=== PATIENT | male | born 1955 | race Caucasian/White ===

== ENCOUNTER 2018-09-03 07:07 | Inpatient (IN) ==
[2018-09-03] MEDS ORDERED: ASPIRIN CHEW 324 MG ONE (07:21)
[2018-09-03] MEDS ORDERED: NITROGLYCERIN SL 0.4 MG/TAB TAB ONE (07:29)
[2018-09-03 07:33] LABS: Hematocrit (blood only) 49.2 % (42-52); Hemoglobin 16.5 g/dL (14.0-18.0); Mean Corpuscular Hgb Conc 33.5 g/dL (32-36); Mean Platelet Volume 9.4 fL (7.4-10.4); Platelet Count 192 K/uL (130-400); RDW Coefficient of Variation 12.8 % (11.5-14.5); RDW Standard Deviation 44.3 fL (36.4-46.3); Red Blood Count 5.18 M/uL (4.7-6.1); White Blood Count 6.71 K/uL (4.8-10.8)
[2018-09-03 07:40] LABS: iSTAT Hemoglobin 16.7 g/dl (14.0-18.0); iSTAT Ionized Calcium 1.19 mmol/l (1.12-1.32); iSTAT Potassium 4.5 mEq/L (3.3-5.0)
[2018-09-03 07:43] LABS: Partial Thromboplastin Time 26.3 Seconds (21.0-31.0); Prothrombin Time 10.2 Seconds (9.0-12.0)
[2018-09-03] MEDS ORDERED: NiCARDipine HCL INJ 2.5 MG/ML 10 ML AMP ONE (07:48)
[2018-09-03] MEDS ORDERED: NITROGLYCERIN/D5W 100MCG/ML 20ML SYR ONE (07:48)
[2018-09-03] MEDS ORDERED: MIDAZOLAM HCL 1 MG/ML 2ML VIAL ONE (07:48)
[2018-09-03] MEDS ORDERED: fentaNYL citrate 100 MCG/2 ML VIAL ONE (07:48)
[2018-09-03] MEDS ORDERED: HEPARIN (PORCINE) 1000 UNIT/ML 10 ML (CATH LAB USE ONLY) ONE ×2 (07:48→08:34)
[2018-09-03 07:52] LABS: Albumin Level 3.8 gm/dl (3.4-5.0); BUN Creatinine Ratio 13.5 (10-20); Calcium 9.3 mg/dl (8.5-10.1); Creatinine Clr Calc Pharmacy 83.6 ml/min; Est GFR (African American) 82.9; Est GFR (Non-African American) 71.6; Magnesium 2.5 mg/dl (1.8-2.4); Potassium 4.7 mmol/L (3.5-5.1)
--- NOTE | 2018-09-03 07:59 | XRay Report ---
XR chest 1V portable HISTORY: 63 years-old Male Chest pain acute atypical chest pain COMPARISON: Chest CT 09/14/2011, chest and rib radiographs 09/14/2011 TECHNIQUE: Portable AP view of the chest FINDINGS: Cardiac silhouette is mildly enlarged which has increased in size from comparison and may be accentua marcelo by technique. No pneumothorax, pleural effusion, focal airspace consolidation or overt pulmonary edema. Degenerative changes of the shoulders and spine. Bones appear grossly intact. IMPRESSION: No acute process. The above report was generated using voice recognition software. It may contain grammatical, syntax o r spelling errors. Electronically signed by: Jimmy Maria M.D. 09/03/2018 7:58 AM
[2018-09-03 08:04] LABS: ALC (manual) 3.56 K/uL (1.2-3.4); Basophils # (manual) 0.06 K/uL (0-0.2); Basophils % (manual) 0.9 %; Eosinophils # (manual) 0.11 K/uL (0-0.5); Eosinophils % (manual) 1.7 %; Lymphocytes # (manual) 1.81 K/uL (1.2-3.4); Monocytes % (manual) 10.4 %; Myelocytes # (manual) 0.06 K/uL (0-0); Myelocytes % (manual) 0.9 %; RBC Morphology Unremarkable; Reactive Lymphocytes # (manual) 1.75 K/uL
[2018-09-03 08:11] LABS: Albumin Globulin Ratio 1.1 (0.9-2); Bilirubin,Total 0.5 mg/dl (0.2-1); Creatine Kinase MB 2.3 ng/ml (0.5-3.6); Globulin 3.4 gm/dl (2.5-4.0); Total Protein 7.2 gm/dl (6.4-8.2); Troponin I 0.193 ng/ml (0-0.045)
--- NOTE | 2018-09-03 08:39 | Emergency Department Note ---
Entered by Darcy Gonzalez acting as a scribe for History of Present Illness General Chief complaint: Chest Pain Stated complaint: CHEST PAIN, SWEATING BADLY Time Seen by Provider: 09/03/18 07:28 Source: patient, family and other (Nurse) History of Present Illness Onset (ago): hour(s) 1 Location: chest Pain Consistency: + other (Sudden) Associated symptoms: + chest pain, + diaphoresis and + other (Positive back pain.) 63-year-old male presenting to the emergency department triage via private vehicle with chest pain. While in triage the patient became unresponsive and lost a pulse. HPI and review of systems are limited secondary to patient's clinical condition. Home Medications Home Medications Medication Instructions Recorded Confirmed Type glucos sul [id number] 2 cap PO QAM 09/03/18 09/03/18 History [Glucosamine Chondroitin] Allergies Allergy/AdvReac Type Severity Reaction Status Date / Time Penicillins Allergy Unknown . Verified 09/03/18 07:53 Past Med/Surg History Medical History No pertinent past medical history Surgical History History of repair of ACL Family History Other Cancer Social History Feels Safe at Home: Yes Smoking Status: Former smoker Review of Systems Unobtainable due to cognitive status Physical Exam Vital Signs Vital Signs - 24 hr 09/03/18 07:09 09/03/18 07:21 09/03/18 07:24 Temperature 36.5 C Temperature Source Oral Sepsis Recent Fever Within 48 Hours No Sepsis New/Unexplained Change in Mental Status No Sepsis Action Taken by Nursing No Action Required Pulse Rate 51 L 69 Pulse Rate [Apical] 104 H Pulse Rhythm [Apical] Regular Respiratory Rate 20 25 H 16 Respiratory Effort / Characteristics Respiratory Depth Blood Pressure 159/96 H Blood Pressure [Left Arm] 143/86 H Blood Pressure [Right Arm] Blood Pressure Mean 117 Blood Pressure Mean [Left Arm] 105 Blood Pressure Mean [Right Arm] Blood Pressure Position Sitting Blood Pressure Position [Left Arm] Lying Blood Pressure Position [Right Arm] Pulse Oximetry 93 100 100 Oxygen Delivery Method Room Air Non-rebreather Non-rebreather Oxygen Flow Rate 15 15 09/03/18 07:34 09/03/18 07:42 09/03/18 07:53 Temperature Temperature Source Sepsis Recent Fever Within 48 Hours Sepsis New/Unexplained Change in Mental Status Sepsis Action Taken by Nursing Pulse Rate 69 Pulse Rate [Apical] 87 71 Pulse Rhythm [Apical] Regular Regular Respiratory Rate 23 15 17 Respiratory Effort / Characteristics Non-Labored Respiratory Depth Normal Blood Pressure 139/97 Blood Pressure [Left Arm] 130/92 131/91 Blood Pressure [Right Arm] 136/98 Blood Pressure Mean Blood Pressure Mean [Left Arm] 104 104 Blood Pressure Mean [Right Arm] 110 Blood Pressure Position Blood Pressure Position [Left Arm] Lying Lying Blood Pressure Position [Right Arm] Lying Pulse Oximetry 100 99 96 Oxygen Delivery Method Non-rebreather Non-rebreather Non-rebreather Oxygen Flow Rate 15 15 15 Physical Exam GENERAL: Distressed. Pale. In cardiac arrest. HENT: Exam performed. - Head: Normocephalic and atraumatic. CV: No palpable pulse, chest compressions being done. PULM/CHEST: Patient being ventilated with ambu bag. Rhonchi bilaterally. ABD: The abdomen is soft. SKIN: Pale Course 0706: The patient was evaluated in room A1, from triage and a history and physical examination were performed. In triage the patient became unresponsive. He had no pulse on arrival in the resuscitation bay. Patient was immediately started with chest compressions. Patient was placed on the monitor and IV access was obtained. The patient was being bagged with an Ambu bag. 0713: The patient was found to be in V. fib on the monitor. 1 defibrillation of 200 J was given. After that the defibrilation the patient gained a pulse back. Amiodarone 300 mg IV push was ordered. 0718: EKG showed sinus rhythm with rate of 114. VT QRS and QTc intervals are within normal limits. ST elevation in leads V1 V2. ST depression in leads II, III, aVF. PVCs present. Patient's EKG is concerning for STEMI. Given his EKG findings and his successful ROSC heart alert was paged. 0722: EKG shows sinus rhythm with rate of 99. VT QRS and QTc intervals within normal limits. ST elevation in leads V1 V2. ST depression in leads II, III, aVF, V4 and V5. 0725: EKG shows sinus rhythm with rate 96. VT QRS and QTc intervals within normal limits. ST elevation in leads V1 V2. ST depression in leads II, III, aVF. 0730: Patient's was brought to bedside. The patients reports that the patient woke up this morning with a pain in his back that radiated to his shoulders. She states that the patient was having trouble lifting his arms and that this pain eventually radiated to his chest. The patients reports that while in triage the patient became diaphoretic and short of breath. She states that the patient complained of chest pain in triage and then stopped breathing. The patient is currently alert and oriented speaking with his . He currently reports his chest pain is 2 out of 10 over his left anterior chest. No radiation of the pain. He explains that he was on a bike ride about 1 week ago and experienced the same kind of chest pain as he experienced today but did not seek medical attention, as his chest pain at that time resolved on its own when he rested. The patient reports that he has no significant past medical history. He states that he doesnt see a PCP regularly. He notes that he has 4 to 5 glasses of bourbon per day. He adds that he takes Glucosamine daily. No recent cocaine usage. 0737: The patients POC troponin at this time is 0.17. Blood pressure is 130/92. Oxygen saturation is 100% on supplemental oxygen. Given the HPI reported by the that the patient initially had back pain that then radiated to his chest, there was thought about a possible aortic dissection. However, the patient was not hypertensive. He had palpable pulses in his BUE and BLE. BP in his RUE is 130/92 and LUE is 136/98, no significant difference. Given the patient's palpable pulses in bilateral all extremeties, no significant BP difference in his BUE, no significantly elevated BP, no history of cocaine abuse, EKG findings consistent with a STEMI, and the fact that the patient immediately had ROSC back after one defibrilation, it is thought that the patients symptoms were more likely due to a STEMI than aortic dissection. We will discuss with cardiology if they would like to conduct CTA to rule out dissection prior to taking the patient to the rn lab. 0741: I discussed the patients case with Dr. Cuello cold type artist. He will be at the patients bedside momentarily. I did discuss with him if he wanted me to get a CTA to rule out aortic dissection but he stated to take the patient directly to the manufacturing lab technician. He will evaluate the patient for further management. 0749: Dr. Cuello at bedside evaluating the patient. 0756: Dr. Cuello took the patient to the manufacturing lab technician at this time. Consultations Consultation #1: I discussed the patients case with Dr. Cuello cold type artist. He will be at the patients bedside momentarily. I did discuss with him if he wanted me to get a CTA but he stated to take the patient directly to the manufacturing lab technician. He will evaluate the patient for further management. Time: 07:41 Administered Medications Discontinued Medications Aspirin (Aspirin) Confirm Administered Dose 324 mg .ROUTE .[facility] ONE Stop: 09/03/18 07:22 Last Admin: 09/03/18 07:21 Dose: 324 mg Documented by: [id number] Nitroglycerin (Nitrostat) Confirm Administered Dose 1.2 mg .ROUTE .[facility] ONE Stop: 09/03/18 07:30 Last Admin: 09/03/18 07:30 Dose: 0.4 mg Documented by: [id number] Medical Decision Making Medical Records Attestation: I reviewed the patient's medical records. Home Medications Current Medication List: was personally reviewed by me Laboratory Data Attestation: I reviewed the patient's lab results. Result diagrams: 09/03/18 07:24 09/03/18 07:24 Lab Results 09/03/18 09/03/18 09/03/18 Range/Units 07:23 07:24 07:24 WBC 6.71 (4.8-10.8) K/uL RBC 5.18 (4.7-6.1) M/uL Hgb 16.5 (14.0-18.0) g/dL POC Hgb (14.0-18.0) g/dl Hct 49.2 (42-52) % POC Hct (42-52) % MCV 95.0 (80-100) fL MCH 31.9 (25-34) pg MCHC 33.5 (32-36) g/dL RDW Std Deviation 44.3 (36.4-46.3) fL RDW Coeff of Asaf 12.8 (11.5-14.5) % Plt Count 192 (130-400) K/uL MPV 9.4 (7.4-10.4) fL Neutrophils % (Manual) 33.0 % Lymphocytes % (Manual) 27.0 % Reactive Lymphs % (Man) 26.1 % Monocytes % (Manual) 10.4 % Eosinophils % (Manual) 1.7 % Basophils % (Manual) 0.9 % Myelocytes % (Man) 0.9 % Neutrophils # (Manual) 2.21 (1.4-6.5) K/uL Total Absolute Neuts 2.21 (1.4-6.5) K/uL Lymphocytes # (Manual) 1.81 (1.2-3.4) K/uL Reactive Lymphs # 1.75 K/uL Total Abs Lymphocytes 3.56 H (1.2-3.4) K/uL Monocytes # (Manual) 0.70 H (0.11-0.59) K/uL Eosinophils # (Manual) 0.11 (0-0.5) K/uL Basophils # (Manual) 0.06 (0-0.2) K/uL Myelocytes # (Manual) 0.06 H (0-0) K/uL RBC Morphology Unremarkable PT 10.2 (9.0-12.0) Seconds INR 1.0 (0.9-1.1) APTT 26.3 (21.0-31.0) Seconds PTT Ratio 1.0 POC Sodium (135-144) mEq/L Sodium (136-145) mmol/L POC Potassium (3.3-5.0) mEq/L Potassium (3.5-5.1) mmol/L POC Chloride (101-112) mEq/L Chloride (98-107) mmol/L Carbon Dioxide (21-32) mmol/L POC Total CO2 (24-31) mEq/l Anion Gap (3-11) POC Anion Gap (16-25) mmol/L POC BUN (7-18) mg/dl BUN (7-18) mg/dl Creatinine (0.6-1.4) mg/dl POC Creatinine (0.6-1.3) mg/dl Est Cr Clr Drug Dosing ml/min Est GFR ( Amer) Est GFR (Non-Af Amer) BUN/Creatinine Ratio (10-20) Glucose (70-99) mg/dl POC Glucose (other) (70-99) mg/dl Calcium (8.5-10.1) mg/dl POC Ioniz Calcium Elza (1.12-1.32) mmol/l Magnesium (1.8-2.4) mg/dl Total Bilirubin (0.2-1) mg/dl AST (15-37) U/L ALT (12-78) U/L Alkaline Phosphatase (45-117) U/L Total Creatine Kinase (39-308) U/L CK-MB (CK-2) (0.5-3.6) ng/ml CK/CKMB % Calc (0-3.0) POC Troponin I 0.17 H (0-0.045) ng/ml Troponin I (0-0.045) ng/ml Total Protein (6.4-8.2) gm/dl Albumin (3.4-5.0) gm/dl Globulin (2.5-4.0) gm/dl Albumin/Globulin Ratio (0.9-2) Lipase (73-393) U/L TSH (0.300-4.500) uIu/ml Specimen Hemolysis 09/03/18 09/03/18 Range/Units 07:24 07:25 WBC (4.8-10.8) K/uL RBC (4.7-6.1) M/uL Hgb (14.0-18.0) g/dL POC Hgb 16.7 (14.0-18.0) g/dl Hct (42-52) % POC Hct 49 (42-52) % MCV (80-100) fL MCH (25-34) pg MCHC (32-36) g/dL RDW Std Deviation (36.4-46.3) fL RDW Coeff of Asaf (11.5-14.5) % Plt Count (130-400) K/uL MPV (7.4-10.4) fL Neutrophils % (Manual) % Lymphocytes % (Manual) % Reactive Lymphs % (Man) % Monocytes % (Manual) % Eosinophils % (Manual) % Basophils % (Manual) % Myelocytes % (Man) % Neutrophils # (Manual) (1.4-6.5) K/uL Total Absolute Neuts (1.4-6.5) K/uL Lymphocytes # (Manual) (1.2-3.4) K/uL Reactive Lymphs # K/uL Total Abs Lymphocytes (1.2-3.4) K/uL Monocytes # (Manual) (0.11-0.59) K/uL Eosinophils # (Manual) (0-0.5) K/uL Basophils # (Manual) (0-0.2) K/uL Myelocytes # (Manual) (0-0) K/uL RBC Morphology PT (9.0-12.0) Seconds INR (0.9-1.1) APTT (21.0-31.0) Seconds PTT Ratio POC Sodium 141 (135-144) mEq/L Sodium 141 (136-145) mmol/L POC Potassium 4.5 (3.3-5.0) mEq/L Potassium 4.7 (3.5-5.1) mmol/L POC Chloride 105 (101-112) mEq/L Chloride 107 (98-107) mmol/L Carbon Dioxide 25 (21-32) mmol/L POC Total CO2 22 L (24-31) mEq/l Anion Gap 9.0 (3-11) POC Anion Gap 20.0 (16-25) mmol/L POC BUN 16 (7-18) mg/dl BUN 15 (7-18) mg/dl Creatinine 1.10 (0.6-1.4) mg/dl POC Creatinine 1.0 (0.6-1.3) mg/dl Est Cr Clr Drug Dosing 83.6 ml/min Est GFR ( Amer) 82.9 Est GFR (Non-Af Amer) 71.6 BUN/Creatinine Ratio 13.5 (10-20) Glucose 129 H (70-99) mg/dl POC Glucose (other) 139 H (70-99) mg/dl Calcium 9.3 (8.5-10.1) mg/dl POC Ioniz Calcium Elza 1.19 (1.12-1.32) mmol/l Magnesium 2.5 H (1.8-2.4) mg/dl Total Bilirubin 0.5 (0.2-1) mg/dl AST 43 H (15-37) U/L ALT 48 (12-78) U/L Alkaline Phosphatase 59 (45-117) U/L Total Creatine Kinase 82 (39-308) U/L CK-MB (CK-2) 2.3 (0.5-3.6) ng/ml CK/CKMB % Calc 2.8 (0-3.0) POC Troponin I (0-0.045) ng/ml Troponin I 0.193 H* (0-0.045) ng/ml Total Protein 7.2 (6.4-8.2) gm/dl Albumin 3.8 (3.4-5.0) gm/dl Globulin 3.4 (2.5-4.0) gm/dl Albumin/Globulin Ratio 1.1 (0.9-2) Lipase 95 (73-393) U/L TSH 1.470 (0.300-4.500) uIu/ml Specimen Hemolysis Imaging Data Radiologist's Impression: Radiology results as stated below per my review and the radiologist's interpretation: XR chest 1V portable HISTORY: 63 years-old Male Chest pain acute atypical chest pain COMPARISON: Chest CT 09/14/2011, chest and rib radiographs 09/14/2011 TECHNIQUE: Portable AP view of the chest FINDINGS: Cardiac silhouette is mildly enlarged which has increased in size from comparison and may be accentuated by technique. No pneumothorax, pleural effu tri, focal airspace consolidation or overt pulmonary edema. Degenerative changes of the shoulders and spine. Bones appear grossly intact. IMPRESSION: No acute process. The above report was generated using voice recognition software. It may contain grammatical, syntax or spelling errors. Electronically signed by: Jimmy Maria M.D. 09/03/2018 7:58 AM ECG Data Attestation: I personally reviewed and interpreted this ECG as follows: Indication: chest pain Rate (beats per minute): 114 Rhythm: sinus rhythm Findings: + other (VT, QRS and QTC intervals within normal limits.), + PVC, + ST depression (in leads 2, 3 and aVF.) and + ST elevation (in Leads V1 & V2.) Additional Comments: The primary EKG was done at 0718. 0722: Repeat EKG per my interpretation: Sinus rhythm at 99 bpm. VT, QRS and QTC intervals within normal limits. ST elevation in leads V1 and V2. ST depression in leads 2, 3, aVF and V4 through V6. PVCs present. 0725: Repeat EKG per my interpretation: Sinus rhythm at 96 bpm. VT, QRS and QTC intervals within normal limits. ST elevation in leads V1 and V2. ST depression in leads 2, 3 and aVF. Blood Pressure Blood Pressure Findings: Normal blood pressure Blood Pressure Disposition: further management by hospitalist JAYY Ramirez I was called into the resuscitation bay one by the nursing staff. In triage the patient became unresponsive. He had no pulse on arrival in the resuscitation bay. Patient was immediately started with chest compressions. Patient was placed on the monitor and IV access was obtained. The patient was being bagged with an Ambu bag. The patient was found to be in V. fib on the monitor. 1 defibrillation of 200 J was given. After that the defibrilation the patient gained a pulse back. Amiodarone 300 mg IV push was ordered. EKG showed sinus rhythm with rate of 114. VT QRS and QTc intervals are within normal limits. ST elevation in leads V1 V2. ST depression in leads II, III, aVF. PVCs present. Patient's EKG is concerning for STEMI. Given his EKG findings and his successful ROSC heart alert was paged. The patients reported that the patient woke up this morning with a pain in his back that radiated to his shoulders. She stated that the patient was having trouble lifting his arms and that this pain eventually radiated to his chest. The patients reported that while in triage the patient became diaphoretic and short of breath. She states that the patient complained of chest pain in triage and then stopped breathing. The patient reported chest pain over the left anterior chest while in the resuscitation bay. He stated he had similar pain last week while riding his bike, he said the pain resolved when he stopped riding his bike and rested. The patients POC troponin was 0.17. Given the HPI reported by the that the patient initially had back pain that then radiated to his chest, there was thought about a possible aortic dissection. However, the patient was not hypertensive. He had palpable pulses in his BUE and BLE. BP in his RUE is 130/92 and LUE is 136/98, no significant difference. Given the patient's palpable pulses in bilateral all extremeties, no significant BP difference in his BUE, no significantly elevated BP, no history of cocaine abuse, EKG findings consistent with STEMI, and the fact that the patient immediately had ROSC back after one defibrilation, it is thought that the patients symptoms were more likely due to a STEMI than aortic dissection. It is thought that if the patient was truly dissecting we would not successfully obtain ROSC with one defibrilation and his BP and pulse would be significantly higher than it was in the emergency department. We did discuss with cardiology if they would like to conduct CTA to rule out dissection prior to taking the patient to the rn lab. Cardiology evaluated the patient at bedside and decided to take the patient straight to the rn lab. Impression & Plan ST elevation (STEMI) myocardial infarction, Cardiac arrest with ventricular fibrillation Critical Care Time Critical Care Time: Yes Total Critical Care Time: 50 I have personally spent 50 minutes of critical care time in the direct management of this patient. This includes bedside care, interpretation of diagnostic studies, and testing, discussion with consultants, patient, and family members, and other required patient management activities. This 50 minutes is in excess of all separately billable procedures. Discharge Plan Visit Data *Final* Discharge Date/Time: 09/03/18 08:16 Chief Complaint: Chest Pain Stated Complaint: CHEST PAIN, SWEATING BADLY ED Provider: Humble Hines Discharge Problem: ST elevation (STEMI) myocardial infarction, Cardiac arrest with ventricular fibrillation Patient Disposition: Still a Patient Discharge Instructions Interventions: ED Discharge Assessment Last Done: 09/03/18 07:53 Discharge Problem: ST elevation (STEMI) myocardial infarction Qualifiers: Involved coronary artery: unspecified coronary artery Qualified Code(s): I21.3 - ST elevation (STEMI) myocardial infarction of unspecified site The scribe's documentation has been prepared under my direction and personally reviewed by me in its entirety. I confirm that the note above accurately reflects all work, treatment, procedures, and medical decision making performed by me.
[2018-09-03] MEDS ORDERED: TICAGRELOR 90 MG TAB PO ONE (09:05)
--- NOTE | 2018-09-03 09:24 | Cardiology Consultation ---
Date of Consultation September 03, 2018 Assessment & Plan (1) ST elevation (STEMI) myocardial infarction: Presentation consistent with anterior STEMI and recommend proceeding with emergent cardiac catheterization and likely primary PCI. No apparent contraindications to procedure. Discussed risks, benefits, alternatives of procedure with patient and they are willing to proceed. Further recommendations pending findings of coronary angiography. History of Present Illness Attending Physician: Pablo Cuello MD History of Present Illness 63-year-old man here with acute chest pain and ECG concerning for acute WI. Patient seen emergently in the ED after heart alert activated on arrival. No prior cardiac history. No real cardiac risk factors or other medical issues. Chest pain began approximately 1 hour prior to arrival while getting ready to go on a bike ride. Describes substernal chest pain radiating to his back pain. Reports one similar episode of brief pain 1 week ago while working in the garage. Since that time his exercise with no recurrent symptoms.. Patient arrested in triage after complaining of active chest pain. VF on monitor initially and received 1 shock chest compressions and loaded with amiodarone. Subsequent EKGs showed anterior, lateral ST elevations with inferior depressions. Post event patient awake, he dynamically stable endorsing 5 out of 10 chest pain. Allergies Allergy/AdvReac Type Severity Reaction Status Date / Time Penicillins Allergy Unknown . Verified 09/03/18 07:53 Home Medications Home Medications Medication Instructions Recorded Confirmed Type glucos sul [id number] 2 cap PO QAM 09/03/18 09/03/18 History [Glucosamine Chondroitin] Patient History Medical History No pertinent past medical history Surgical History History of repair of ACL Family History Other Cancer Social History Feels Safe at Home: Yes Smoking Status: Former smoker Review of Systems Review of Systems: Not completed in the setting of emergent situation Physical Exam Physical Exam: General: Uncomfortable no distress HEENT: Sclerae anicteric, mucous membranes moist Lungs: Clear to auscultation bilaterally, no rhonchi or wheezes Cardiac: Regular rate and rhythm, no murmurs. No JVD. Abdomen: Soft, nontender, nondistended, positive bowel sounds. Extremities: Warm, well perfused, no edema. 2+ radial pulses and distal lower extremity pulses Skin: No rashes or lesions. Neuro: Nonfocal Psych: Alert orient x3, normal affect and mood Results & Data Vital Signs (Past 12 Hours) Vital Signs Temp Pulse Pulse Resp BP BP BP 09/03/18 07:53 69 17 139/97 09/03/18 07:42 71 15 131/91 09/03/18 07:34 87 23 130/92 136/98 09/03/18 07:24 69 16 09/03/18 07:21 104 H 25 H 143/86 H 09/03/18 07:09 36.5 C 51 L 20 159/96 H Pulse Ox 09/03/18 07:53 96 09/03/18 07:42 99 09/03/18 07:34 100 09/03/18 07:24 100 09/03/18 07:21 100 09/03/18 07:09 93 (1) ST elevation (STEMI) myocardial infarction Involved coronary artery: unspecified coronary artery Qualified Code(s): I21.3 - ST elevation (STEMI) myocardial infarction of unspecified site
--- NOTE | 2018-09-03 09:25 | Post Anesthesia Assessment ---
Date of Service September 03, 2018 Post Sedation Assessment Vital Signs Temp Pulse Pulse Resp BP BP BP 09/03/18 07:53 69 17 139/97 09/03/18 07:42 71 15 131/91 09/03/18 07:34 87 23 130/92 136/98 09/03/18 07:24 69 16 09/03/18 07:21 104 H 25 H 143/86 H 09/03/18 07:09 36.5 C 51 L 20 159/96 H Pulse Ox 09/03/18 07:53 96 09/03/18 07:42 99 09/03/18 07:34 100 09/03/18 07:24 100 09/03/18 07:21 100 09/03/18 07:09 93 Recovery Score Activity: Moves 4 extremities Respiration: Deep Breath/Cough Circulation: +/-20% PreAnes Value Consciousness: Fully Awake Oxygen Saturation: O2 needed for >90% Discharge Sedation Level of Care: Fast Track Phase II Post Sedation Plan On clinical assessment, the patient appears to have tolerated the sedation without complications. Patient is recovering as anticipated. Patient will continue to be monitored by nursing and may be discharged when sedation discharge criteria are met per below protocol. Upon Completions of procedure and additional 15 minutes continue every 5 minute vital signs and the P.A.R. score; then discharge to a Phase I or Fast Track to Phase II per the following guidelines: * Discharge Patient to appropriate Phase II area if PAR is 8 or greater or return to pre- procedure baseline. The post - procedure orders will be as directed. * If PAR score is less than 8 or not return to pre-procedure baseline then patient will follow Phase I monitoring till PAR is reached for Phase II. The Phase I may be done in procedure room or may call to secure a Phase I area. * If naloxone or flumazenil are used for reversal, hold in Phase I for continued monitoring from when last reversal dose was given for a minimum of 60 minutes or longer pending the nurse and/or physician discretion of patient condition before discharge to Phase II. Please call the Sedation Physician to re-evaluate and complete post-note for discharge to Phase II area. Do NOT discharge from procedure sedation or Phase 1 until post- sedation evaluation note is complete by procedure /sedation MD Sedation Discharge Instructions to be given to the patient at discharge to home.
--- NOTE | 2018-09-03 09:25 | Pre Anesthesia Assessment ---
Date of Service September 03, 2018 Pre Sedation Assessment Vital Signs Temp Pulse Pulse Resp BP BP BP 09/03/18 07:53 69 17 139/97 09/03/18 07:42 71 15 131/91 09/03/18 07:34 87 23 130/92 136/98 09/03/18 07:24 69 16 09/03/18 07:21 104 H 25 H 143/86 H 09/03/18 07:09 36.5 C 51 L 20 159/96 H Pulse Ox 09/03/18 07:53 96 09/03/18 07:42 99 09/03/18 07:34 100 09/03/18 07:24 100 09/03/18 07:21 100 09/03/18 07:09 93 Cardiovascular RRR, no murmur, no edema Respiratory normal respiratory effort, lungs clear to auscultation Pre-Sedation Airway Assessment Smoking Status: Former smoker Hx Sleep Apnea: No Hx Difficult Intubation: No Short, Thick Neck: No Thyromental Distance: > or= 3.5 Finger Breadths Oral Cavity: + WNL Mallampati Class: III ASA: ASA4 Procedure Planning Contraindications for Sedation: none Current Medications Reviewed: Yes Notes The planned sedation has been discussed with the patient. Informed Consent was obtained. I have identified the patient, determined the appropriateness of sedation and have assessed the patient immediately prior to the procedure. All medicine(s) and interventions are by my order.
[2018-09-03] MEDS ORDERED: ONDANSETRON INJ 2 MG/ML 2 ML VIAL IV PRN (09:37)
--- NOTE | 2018-09-03 09:37 | Cardiac Catheterization ---
Cardiac Cath Procedure Full Procedure Date September 03, 2018 Pre-Procedure Diagnosis Pre-Procedure Diagnosis: STEMI AUC Score AUC Score: 9 Post-Procedure Diagnosis Post-Procedure Diagnosis: Severe CAD, Successful PCI and Elevated Intracardiac Pressures Procedure(s) Performed Procedure(s) Performed: Coronary Angiography, Left Heart Cath and Drug Eluting Stent Support Specialist Pablo Cuello MD Assisted Sales Representative(s) Melanie Estimated Blood Loss Estimated Blood Loss: None Medication(s) Medication(s): Fentanyl, Heparin, Lidocaine 1%, Nicardipine, Nitroglycerin and Versed Medication(s): Ticagrelor Summary of Findings Indication: STEMI/Heart Alert Access: 6 Fr right radial artery Catheters: EBU 3.5 guide, diagnostic JR4 Findings: LM -large caliber vessel, no significant disease LAD -proximal 100% acute occlusion Circumflex -moderate caliber vessel gives off to OM's without significant disease RCA -large caliber vessel, dominant, 20-30% stenosis in distal RCA takeoff of PDA LVEDP -20 -- PCI -- Antithrombotic therapy: Heparin, ticagrelor Procedure: Left main cannulated with EBU 3.5 guide Plant Packer 50 wire passed across lesion into distal vessel Proximal LAD lesion predilated with 2.5 compliant balloon When flow reestablished noted to have moderate caliber diagonal with takeoff at area of occlusion. Multiple attempts were made to wire into diagonal but unsuccessful. Dilated LAD lesion stented with 3.0 x 22 Ceiba drug-eluting stent Stent post-dilated with 3.5 and 4.0 proximally noncompliant balloons Additional attempts made to rewire into diagonal but unsuccessful. At completion of procedure no flow in second diagonal. IC vasodilators administered for spasm Post procedure DENITA 3 flow, stent well expanded with minimal residual stenosis and no apparent cardiac complications. Arterial Closure: TR band Summary: 1. Precath lab cardiac arrest 2. Anterior STEMI/Occluded proximal LAD 3. Minimal non-culprit coronary artery disease 4. Mildly elevated intracardiac filling pressure 5. Successful PCI of proximal LAD with single drug-eluting stent (3.0 x 22 mm Ceiba; postdilated with 3.5 and 4 oh NC balloons). - moderate caliber 1st diagonal occluded at completion of procedure Recommendations: Admit to ICU for continued monitoring Loaded with Ticagrelor 180mg Continue dual-antiplatelet therapy for at least 1 year. 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 Cardiac Status Clinical evaluation leading to the procedure CAD Presenation: STEMI Anginal Classification: CCS IV Heart Failure: No Cardiogenic Shock within 24 Hours: No Cardiac Arrest within 24 Hours: Yes Imaging Studies Past 6 Months: No Stress Studies Past 6 Months: No Diagnostic Physicians Name: Pablo Cuello MD Status: Emergency Closure Device Percutaneous Entry Location: Radial Closure Device: Radial Band Recommendations: PCI without planned CABG PCI Indication: Immediate PCI for STEMI Lesion Segment Name: proximal LAD Culprit Artery: Yes Stenosis Prior to Rx (%): 100 Chronic Total Occlusion: No IVUS: No Pre-Procedure DENITA Flow: 0 Previously Treated Lesion: No Lesion Complexity: High/C Lesion Length (mm): 20 Thrombus Present: Yes Bifurcation Lesion: Yes Guidewire Across Lesion: Stenosis Post-Procedure (%): 0 Post-Procedure DENIAT Flow: 3 Devices(s) Deployed: Yes Yes Intraprocedure Events Significant Disection: No Perforation: No
--- NOTE | 2018-09-03 09:41 | Critical Care Consultation ---
Date of Consultation September 03, 2018 Assessment & Plan (1) ST elevation (STEMI) myocardial infarction: Neuro- awake alert. pain control CV- HD stable s/p STEMI with LAD stent. cardiac arrest with rosc after defib x1 and amiodarone. aspirin, ticagrelor, atorvastatin. metoprolol, lisinopril. check echo Pulmonary- sat well on RA ID- no signs infection Renal- cr ok GI- diet as tolerated Heme- SCD proph Endocrine- keep blood sugars <!80 Dispo- monitor in ICU post stemi and cardiac arrest (2) Cardiac arrest with ventricular fibrillation: History of Present Illness Attending Physician: Pablo Cuello MD History of Present Illness 63 y/o make without significant PMH presenting with chest pain that started about an hour prior to arrival. when in triage he became unresponsive and was in v fib. he was shocked x1 and given amiodarone with ROSC. He was found to be having and STEMI and was taken to the medical laboratory scientist where he had stent of the LAD. He says he has chest pain and neck pain as well as diaphoresis and nauea. He says that last week he has simlar pain when working in garage but it went away on its own. currently he has pain in his chest but it feels different than prior and is worse with breathing. Allergies Allergy/AdvReac Type Severity Reaction Status Date / Time Penicillins Allergy Unknown . Verified 09/03/18 07:53 Home Medications Home Medications Medication Instructions Recorded Confirmed Type glucos sul [id number] 2 cap PO QAM 09/03/18 09/03/18 History [Glucosamine Chondroitin] Patient History Medical History No pertinent past medical history Surgical History History of repair of ACL Family History Grandmother Stroke Other Cancer Social History Feels Safe at Home: Yes Smoking Status: Former smoker Review of Systems Review of Systems: Constitutional: no fevers no chills no weight loss Eyes: no blurry or double vision. complains of briefly seeing floaters in L eye but now resolved EENT: no sore throat, no congestion Respiratory: no cough + shortness of breath Cardiovascular: + chest pain no palpitations GI: no abdominal pain, + nausea, no vomiting, no diarrhea, no constipation Gu: no dysuria, no frequency MSK: +shoulder pain, no muscle aches Skin: no rash Neuro: no headache, no dizziness, no focal weakness Endocrine: no heat or cold intolerance heme: no easy bruising, no lymphadenopathy Psych: no depression, no anxiety Physical Exam Physical Exam: Constitutional: Comfortable NAD HEENT: normocephalic atraumatic. MMM. no cervical lymphadenopathy CV: RRR nl s1,s2 no murmurs rubs or gallops Lungs: clear to auscultation bilaterally. no accessory muscle use Abd: soft nontender nondistended. normal bowel sounds Ext: no edema. no cyanosis, no clubbing Skin: warm dry Neuro: alert and oriented. moving all extremities Psych: normal mood and affect Results & Data Vital Signs (Past 12 Hours) Vital Signs Temp Pulse Pulse Resp BP BP BP 09/03/18 07:53 69 17 139/97 09/03/18 07:42 71 15 131/91 09/03/18 07:34 87 23 130/92 136/98 09/03/18 07:24 69 16 09/03/18 07:21 104 H 25 H 143/86 H 09/03/18 07:09 36.5 C 51 L 20 159/96 H Pulse Ox 09/03/18 07:53 96 09/03/18 07:42 99 09/03/18 07:34 100 09/03/18 07:24 100 09/03/18 07:21 100 09/03/18 07:09 93 Laboratory Results Laboratory Results - last 24 hr 09/03/18 09/03/18 09/03/18 07:23 07:24 07:24 WBC 6.71 RBC 5.18 Hgb 16.5 POC Hgb Hct 49.2 POC Hct MCV 95.0 MCH 31.9 MCHC 33.5 RDW Std Deviation 44.3 RDW Coeff of Asaf 12.8 Plt Count 192 MPV 9.4 Neutrophils % (Manual) 33.0 Lymphocytes % (Manual) 27.0 Reactive Lymphs % (Man) 26.1 Monocytes % (Manual) 10.4 Eosinophils % (Manual) 1.7 Basophils % (Manual) 0.9 Myelocytes % (Man) 0.9 Neutrophils # (Manual) 2.21 Total Absolute Neuts 2.21 Lymphocytes # (Manual) 1.81 Reactive Lymphs # 1.75 Total Abs Lymphocytes 3.56 H Monocytes # (Manual) 0.70 H Eosinophils # (Manual) 0.11 Basophils # (Manual) 0.06 Myelocytes # (Manual) 0.06 H RBC Morphology Unremarkable PT 10.2 INR 1.0 APTT 26.3 PTT Ratio 1.0 Activ Coag Time Kaolin POC Sodium Sodium POC Potassium Potassium POC Chloride Chloride Carbon Dioxide POC Total CO2 Anion Gap POC Anion Gap POC BUN BUN Creatinine POC Creatinine Est Cr Clr Drug Dosing Est GFR ( Amer) Est GFR (Non-Af Amer) BUN/Creatinine Ratio Glucose POC Glucose (other) Calcium POC Ioniz Calcium Elza Magnesium Total Bilirubin AST ALT Alkaline Phosphatase Total Creatine Kinase CK-MB (CK-2) CK/CKMB % Calc POC Troponin I 0.17 H Troponin I Total Protein Albumin Globulin Albumin/Globulin Ratio Lipase TSH Specimen Hemolysis 09/03/18 09/03/18 09/03/18 07:24 07:25 08:30 WBC RBC Hgb POC Hgb 16.7 Hct POC Hct 49 MCV MCH MCHC RDW Std Deviation RDW Coeff of Asaf Plt Count MPV Neutrophils % (Manual) Lymphocytes % (Manual) Reactive Lymphs % (Man) Monocytes % (Manual) Eosinophils % (Manual) Basophils % (Manual) Myelocytes % (Man) Neutrophils # (Manual) Total Absolute Neuts Lymphocytes # (Manual) Reactive Lymphs # Total Abs Lymphocytes Monocytes # (Manual) Eosinophils # (Manual) Basophils # (Manual) Myelocytes # (Manual) RBC Morphology PT INR APTT PTT Ratio Activ Coag Time Kaolin Pending POC Sodium 141 Sodium 141 POC Potassium 4.5 Potassium 4.7 POC Chloride 105 Chloride 107 Carbon Dioxide 25 POC Total CO2 22 L Anion Gap 9.0 POC Anion Gap 20.0 POC BUN 16 BUN 15 Creatinine 1.10 POC Creatinine 1.0 Est Cr Clr Drug Dosing 83.6 Est GFR ( Amer) 82.9 Est GFR (Non-Af Amer) 71.6 BUN/Creatinine Ratio 13.5 Glucose 129 H POC Glucose (other) 139 H Calcium 9.3 POC Ioniz Calcium Elza 1.19 Magnesium 2.5 H Total Bilirubin 0.5 AST 43 H ALT 48 Alkaline Phosphatase 59 Total Creatine Kinase 82 CK-MB (CK-2) 2.3 CK/CKMB % Calc 2.8 POC Troponin I Troponin I 0.193 H* Total Protein 7.2 Albumin 3.8 Globulin 3.4 Albumin/Globulin Ratio 1.1 Lipase 95 TSH 1.470 Specimen Hemolysis 09/03/18 08:53 WBC RBC Hgb POC Hgb Hct POC Hct MCV MCH MCHC RDW Std Deviation RDW Coeff of Asaf Plt Count MPV Neutrophils % (Manual) Lymphocytes % (Manual) Reactive Lymphs % (Man) Monocytes % (Manual) Eosinophils % (Manual) Basophils % (Manual) Myelocytes % (Man) Neutrophils # (Manual) Total Absolute Neuts Lymphocytes # (Manual) Reactive Lymphs # Total Abs Lymphocytes Monocytes # (Manual) Eosinophils # (Manual) Basophils # (Manual) Myelocytes # (Manual) RBC Morphology PT INR APTT PTT Ratio Activ Coag Time Kaolin Pending POC Sodium Sodium POC Potassium Potassium POC Chloride Chloride Carbon Dioxide POC Total CO2 Anion Gap POC Anion Gap POC BUN BUN Creatinine POC Creatinine Est Cr Clr Drug Dosing Est GFR ( Amer) Est GFR (Non-Af Amer) BUN/Creatinine Ratio Glucose POC Glucose (other) Calcium POC Ioniz Calcium Elza Magnesium Total Bilirubin AST ALT Alkaline Phosphatase Total Creatine Kinase CK-MB (CK-2) CK/CKMB % Calc POC Troponin I Troponin I Total Protein Albumin Globulin Albumin/Globulin Ratio Lipase TSH Specimen Hemolysis Diagnostic Findings XR chest 1V portable HISTORY: 63 years-old Male Chest pain acute atypical chest pain COMPARISON: Chest CT 09/14/2011, chest and rib radiographs 09/14/2011 TECHNIQUE: Portable AP view of the chest FINDINGS: Cardiac silhouette is mildly enlarged which has increased in size from comparison and may be accentuated by technique. No pneumothorax, pleural effusion, focal airspace consolidation or overt pulmonary edema. Degenerative changes of the shoulders and spine. Bones appear grossly intact. IMPRESSION: No acute process. The above report was generated using voice recognition software. It may contain grammatical, syntax or spelling errors. Electronically signed by: Jimmy Maria M.D. 09/03/2018 7:58 AM (1) ST elevation (STEMI) myocardial infarction Involved coronary artery: unspecified coronary artery Qualified Code(s): I21.3 - ST elevation (STEMI) myocardial infarction of unspecified site
[2018-09-03] MEDS ORDERED: ICU PROTOCOL FOR HYPERGLYCEMIA PRN (09:43)
[2018-09-03] MEDS ORDERED: SODIUM CHLORIDE 0.9% 1000ML 1,000 ML IV SCH (10:00)
[2018-09-03] MEDS ORDERED: SODIUM CHLORIDE 0.9% 10ML FLUSH IV ONE (11:10)
[2018-09-03] MEDS ORDERED: AMIODARONE HCL INJ 50 MG/ML 3 ML VIAL IV ONE (11:10)
[2018-09-03] MEDS ORDERED: DEXTROSE 5% 100 ML BAG IV ONE (11:10)
[2018-09-03] MEDS: ATORVASTATIN 40 MG TAB PO SCH (11:13)
[2018-09-03] MEDS: LISINOPRIL 5 MG TAB PO SCH (11:13)
[2018-09-03] MEDS: METOPROLOL TARTRATE 25 MG TAB PO SCH ×3 (11:39→20:02)
--- NOTE | 2018-09-03 14:32 | History & Physical Report ---
Date of Service September 03, 2018 Assessment & Plan (1) ST elevation (STEMI) myocardial infarction: Anterior wall STEMI 2nd to 100% occluded LAD. s/p emergent heart cath by Dr Cuello with successful VALARIE to the LAD. Now resting comfortably in the ICU post-cath. Cont asa, brilinta, high-intensity statin, low-dose BB, low-dose MARIANNA. Serial troponins, telemetry, echo. Risk factor modification - check lipids in AM, check hemoglobin a1c in am. Counseled him on natural history of CAD and told him that prior tobacco use, genetics, etc all play a role in its development. Appreciate cardiology assistance and critical care consultation. Gentle fluids to promote contrast excretion. Present on Admission?: Yes (2) Cardiac arrest with ventricular fibrillation: V.fib arrest 2nd to 100% occluded LAD. s/p successful confucianism of spontaneous circulation with chest compressions/defibrillation per ACLS protocol. s/p emergent cath with VALARIE to LAD. Monitor on telemetry. K/mag levels noted to be normal. Check echo. Present on Admission?: Yes (3) Hyperlipidemia: Check lipid profile in am. TSH noted to be normal. High-intensity statin. (4) Alcohol abuse: 5 shots bourbon daily. No prior h/o withdrawal. Thiamine/folic acid/MVI. Counseled to moderate his etoh intake to 1-2 each day but preferably much less. Watch for any withdrawal symptoms. (5) Visual disturbance: left eye. could he have had a stroke causing visual disturbance? concern would be for embolic event in setting of cardiac arrest. monitor; low threshold for imaging (CT head, MRI brain, as well as additional work-up). (6) DVT prophylaxis: SCDs for now. updated at bedside. plan of care d/w Dr Cuello. History of Present Illness Chief Complaint: chest pain Primary Care Provider: NO PCP 63yo male with history of remote tobacco dependence (quit age 40yo) and hyp erlipidemia who presented to the [facility] ER this morning after experiencing b/l upper chest discomfort. This was associated with extreme diaphoresis and nausea. He had mild radiation of pain to his upper back. No left arm pain. Minimal radiation to the right lower jaw region. He was preparing to go on a mountain bike ride this AM when the symptoms occurred. Because of the severity of the symptoms he presented to [facility]. Apparently while in triage he became unresponsive. He was brought into the resuscitation bay and his initial rhythm was v.fib. He was promptly given 100% O2 via BVM, chest compressions were started, and he was defibrillated with 200J x 1 with conversion of v.fib to sinus tachycardia. He never required intubation. By report he received about 2 minutes of chest compressions. He was given a bolus of 300mg of IV amiodarone about this time. Initial EKG following successful defibrillation showed STEMI with ST segment elevation in I/AVL and anterolateral leads. Code heart alert was called, and Dr Pablo Cuello took him emergently to the pie bak[facility] laborer where a proximal LAD lesion of 100% was found. He underwent successful VALARIE to the LAD. Other major vessels were either normal or had minimal disease. I saw the patient in the ICU post-cath. He was complaining of chest discomfort but it was a different pain that what he had this AM (it was sternal in location rather than high up in the chest/shoulders). He had worsening chest discomfort with taking deep breaths. He also noted that after coming out of the pie bakery laborer he was seeing a "diagonal line" in his left eye. This has been coming & going since the heart cath. He denies any right eye visual disturbance. Denies focal weakness in either arm or leg. He had a similar episode of chest pain about 1 week ago while riding his mountain bike. His symptoms self-resolved after that incident. 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 Admits to heavy alcohol use daily - 5 shots of bourbon every day. Denies h/o withdrawal symptoms. Allergies Allergy/AdvReac Type Severity Reaction Status Date / Time Penicillins Allergy Unknown . Verified 09/03/18 07:53 Home Medications Home Medications Medication Instructions Recorded Confirmed Type glucos sul [id number] 2 cap PO QAM 09/03/18 09/03/18 History [Glucosamine Chondroitin] Past Med/Surg History Medical History Former heavy tobacco smoker Hyperlipidemia Surgical History History of repair of ACL H/O arthroscopy of knee Family History Mother , in her 70s Sepsis Father , age 58 Laryngeal cancer Alcoholism Uncle Myocardial infarction Grandfather (Maternal) Stroke Grandfather (Paternal) Stroke Other Cancer Social History Beliefs That Will Affect Care: None marital status: marital status details: 1 step-daughter Current Living Situation: Spouse Current Living Situation Comment: lives in [place] current occupational status: employed 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; 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 Feels Safe at Home: Yes Smoking Status: Former smoker Tobacco Type: cigarettes Age Started Using Tobacco: 23 Age Quit Using Tobacco: 39 packs per day: 1 Years Smoked: 18 Hx Alcohol Use: Yes Alcohol type: hard liquor Alcohol type Comment: 5 shots bourbon/day Alcohol Intake Frequency: Daily Hx Substance Use: No Physical Activity Frequency: 3-4 Times per Week Review of Systems Constitutional: no fever, no chills, no fatigue, no anorexia and no weight loss Eyes: as per Subjective / HPI, + spots in vision and + worsening vision; no loss of peripheral vision, no photophobia and not seeing flashes Ear, Nose, Mouth, Throat: no nasal congestion and no sore throat Respiratory: + dyspnea (today only); no cough and no dyspnea on exertion Cardiovascular: as per Subjective / HPI and + chest pain; no orthopnea, no paroxysmal nocturnal dyspnea and no edema Gastrointestinal: no abdominal pain, no vomiting and no diarrhea/loose stools Genitourinary: no dysuria Musculoskeletal: + joint pain (knees) Integumentary: no rash Neurologic: no localized weakness, no paralysis, no loss of sensation and no headache(s) Psychiatric: + anxiety Endocrine: no h/o diabetes Hematologic / Lymphatic: no easy bleeding Physical Exam Constitutional: well developed, well nourished and average body habitus; no acute distress and no altered mental status Eyes: PERRL visual bailon full by direct confrontation ENMT: external ear and nose normal, oropharynx normal Neck: trachea midline, no thyromegaly Respiratory: normal respiratory effort, lungs clear to auscultation Cardiovascular: Rate/Rhythm: regular rate and regular rhythm Heart Sounds: normal S1 and normal S2; no murmur Vessels: posterior tibial pulses present and dorsalis pedis pulses present; no JVD Extremities: no edema Chest (Breasts): Additional Comments: mildly tender to palpation over sternal region Gastrointestinal (Abdomen): normal bowel sounds, soft, nontender, no hepatosplenomegaly Musculoskeletal: no cyanosis or clubbing, extremities motor strength 5/5 scars present over both knees Skin: no rashes, warm and dry Neurologic: PERRL, EOMI, accommodation nl, no face palsy, no dysarthria deep tendon reflexes 2+ bilaterally; no focal motor deficits Psychiatric: A+Ox3, euthymic affect Lymphatic: no cervical lymphadenopathy Results & Data Vital Signs (Past 12 Hours) Vital Signs Temp Pulse Pulse Resp BP BP BP 09/03/18 13:00 23 134/87 09/03/18 12:15 60 17 136/88 09/03/18 12:00 36.4 C L 56 L 21 139/86 09/03/18 11:30 57 L 17 114/100 09/03/18 11:15 56 L 18 145/92 H 09/03/18 11:00 54 L 16 140/82 09/03/18 10:45 55 L 16 149/82 H 09/03/18 10:30 56 L 18 138/86 09/03/18 10:15 54 L 12 122/81 09/03/18 10:00 57 L 20 138/123 H 09/03/18 09:49 59 L 21 129/88 09/03/18 09:44 36.4 C L 58 L 20 125/93 09/03/18 09:35 36.8 C 60 125/93 09/03/18 07:53 69 17 139/97 09/03/18 07:42 71 15 131/91 09/03/18 07:34 87 23 130/92 136/98 09/03/18 07:24 69 16 09/03/18 07:21 104 H 25 H 143/86 H 09/03/18 07:09 36.5 C 51 L 20 159/96 H Pulse Ox 09/03/18 13:00 93 09/03/18 12:15 96 09/03/18 12:00 96 09/03/18 11:30 95 09/03/18 11:15 97 09/03/18 11:00 94 09/03/18 10:45 96 09/03/18 10:30 97 09/03/18 10:15 99 09/03/18 10:00 94 09/03/18 09:49 90 09/03/18 09:44 94 09/03/18 09:35 92 09/03/18 07:53 96 09/03/18 07:42 99 09/03/18 07:34 100 09/03/18 07:24 100 09/03/18 07:21 100 09/03/18 07:09 93 Laboratory Results Laboratory Results - last 24 hr 09/03/18 09/03/18 09/03/18 07:23 07:24 07:24 WBC 6.71 RBC 5.18 Hgb 16.5 POC Hgb Hct 49.2 POC Hct MCV 95.0 MCH 31.9 MCHC 33.5 RDW Std Deviation 44.3 RDW Coeff of Asaf 12.8 Plt Count 192 MPV 9.4 Neutrophils % (Manual) 33.0 Lymphocytes % (Manual) 27.0 Reactive Lymphs % (Man) 26.1 Monocytes % (Manual) 10.4 Eosinophils % (Manual) 1.7 Basophils % (Manual) 0.9 Myelocytes % (Man) 0.9 Neutrophils # (Manual) 2.21 Total Absolute Neuts 2.21 Lymphocytes # (Manual) 1.81 Reactive Lymphs # 1.75 Total Abs Lymphocytes 3.56 H Monocytes # (Manual) 0.70 H Eosinophils # (Manual) 0.11 Basophils # (Manual) 0.06 Myelocytes # (Manual) 0.06 H RBC Morphology Unremarkable PT 10.2 INR 1.0 APTT 26.3 PTT Ratio 1.0 Activ Coag Time Kaolin POC Sodium Sodium POC Potassium Potassium POC Chloride Chloride Carbon Dioxide POC Total CO2 Anion Gap POC Anion Gap POC BUN BUN Creatinine POC Creatinine Est Cr Clr Drug Dosing Est GFR ( Amer) Est GFR (Non-Af Amer) BUN/Creatinine Ratio Glucose POC Glucose POC Glucose (other) Calcium POC Ioniz Calcium Elza Magnesium Total Bilirubin AST ALT Alkaline Phosphatase Total Creatine Kinase CK-MB (CK-2) CK/CKMB % Calc POC Troponin I 0.17 H Troponin I Total Protein Albumin Globulin Albumin/Globulin Ratio Lipase TSH Specimen Hemolysis Nasal Screen MRSA (PCR) Hepatitis C Ab Screen 09/03/18 09/03/18 09/03/18 07:24 07:25 08:30 WBC RBC Hgb POC Hgb 16.7 Hct POC Hct 49 MCV MCH MCHC RDW Std Deviation RDW Coeff of Asaf Plt Count MPV Neutrophils % (Manual) Lymphocytes % (Manual) Reactive Lymphs % (Man) Monocytes % (Manual) Eosinophils % (Manual) Basophils % (Manual) Myelocytes % (Man) Neutrophils # (Manual) Total Absolute Neuts Lymphocytes # (Manual) Reactive Lymphs # Total Abs Lymphocytes Monocytes # (Manual) Eosinophils # (Manual) Basophils # (Manual) Myelocytes # (Manual) RBC Morphology PT INR APTT PTT Ratio Activ Coag Time Kaolin 197 H POC Sodium 141 Sodium 141 POC Potassium 4.5 Potassium 4.7 POC Chloride 105 Chloride 107 Carbon Dioxide 25 POC Total CO2 22 L Anion Gap 9.0 POC Anion Gap 20.0 POC BUN 16 BUN 15 Creatinine 1.10 POC Creatinine 1.0 Est Cr Clr Drug Dosing 83.6 Est GFR ( Amer) 82.9 Est GFR (Non-Af Amer) 71.6 BUN/Creatinine Ratio 13.5 Glucose 129 H POC Glucose POC Glucose (other) 139 H Calcium 9.3 POC Ioniz Calcium Elza 1.19 Magnesium 2.5 H Total Bilirubin 0.5 AST 43 H ALT 48 Alkaline Phosphatase 59 Total Creatine Kinase 82 CK-MB (CK-2) 2.3 CK/CKMB % Calc 2.8 POC Troponin I Troponin I 0.193 H* Total Protein 7.2 Albumin 3.8 Globulin 3.4 Albumin/Globulin Ratio 1.1 Lipase 95 TSH 1.470 Specimen Hemolysis Nasal Screen MRSA (PCR) Hepatitis C Ab Screen 09/03/18 09/03/18 09/03/18 08:53 10:15 11:15 WBC RBC Hgb POC Hgb Hct POC Hct MCV MCH MCHC RDW Std Deviation RDW Coeff of Asaf Plt Count MPV Neutrophils % (Manual) Lymphocytes % (Manual) Reactive Lymphs % (Man) Monocytes % (Manual) Eosinophils % (Manual) Basophils % (Manual) Myelocytes % (Man) Neutrophils # (Manual) Total Absolute Neuts Lymphocytes # (Manual) Reactive Lymphs # Total Abs Lymphocytes Monocytes # (Manual) Eosinophils # (Manual) Basophils # (Manual) Myelocytes # (Manual) RBC Morphology PT INR APTT PTT Ratio Activ Coag Time Kaolin 263 H POC Sodium Sodium POC Potassium Potassium POC Chloride Chloride Carbon Dioxide POC Total CO2 Anion Gap POC Anion Gap POC BUN BUN Creatinine POC Creatinine Est Cr Clr Drug Dosing Est GFR ( Amer) Est GFR (Non-Af Amer) BUN/Creatinine Ratio Glucose POC Glucose 106 H POC Glucose (other) Calcium POC Ioniz Calcium Elza Magnesium Total Bilirubin AST ALT Alkaline Phosphatase Total Creatine Kinase CK-MB (CK-2) CK/CKMB % Calc POC Troponin I Troponin I Total Protein Albumin Globulin Albumin/Globulin Ratio Lipase TSH Specimen Hemolysis Nasal Screen MRSA (PCR) Negative Hepatitis C Ab Screen 09/03/18 Unknown WBC RBC Hgb POC Hgb Hct POC Hct MCV MCH MCHC RDW Std Deviation RDW Coeff of Asaf Plt Count MPV Neutrophils % (Manual) Lymphocytes % (Manual) Reactive Lymphs % (Man) Monocytes % (Manual) Eosinophils % (Manual) Basophils % (Manual) Myelocytes % (Man) Neutrophils # (Manual) Total Absolute Neuts Lymphocytes # (Manual) Reactive Lymphs # Total Abs Lymphocytes Monocytes # (Manual) Eosinophils # (Manual) Basophils # (Manual) Myelocytes # (Manual) RBC Morphology PT INR APTT PTT Ratio Activ Coag Time Kaolin POC Sodium Sodium POC Potassium Potassium POC Chloride Chloride Carbon Dioxide POC Total CO2 Anion Gap POC Anion Gap POC BUN BUN Creatinine POC Creatinine Est Cr Clr Drug Dosing Est GFR ( Amer) Est GFR (Non-Af Amer) BUN/Creatinine Ratio Glucose POC Glucose POC Glucose (other) Calcium POC Ioniz Calcium Elza Magnesium Total Bilirubin AST ALT Alkaline Phosphatase Total Creatine Kinase CK-MB (CK-2) CK/CKMB % Calc POC Troponin I Troponin I Total Protein Albumin Globulin Albumin/Globulin Ratio Lipase TSH Specimen Hemolysis Nasal Screen MRSA (PCR) Hepatitis C Ab Screen Pending Diagnostic Findings 1. cxr - no infiltrates. 2. EKG - NSR, ST segment elevation I, AVL; V5/V6; j-point elevation V1-V4; III, AVF - ST segment depression Code Status & VTE Plan Code Status full code VTE Prophylaxis Plan VTE Prophylaxis will be ordered: Yes PG Care Time/CCT Total # of Minutes Spent Total Time Spent with Patient: Total time spent is greater than 50% in coordination of care (as documented) at patient's floor/unit and/or counseling patient: (1) Hyperlipidemia Hyperlipidemia type: mixed hyperlipidemia Qualified Code(s): E78.2 - Mixed hyperlipidemia (2) ST elevation (STEMI) myocardial infarction Involved coronary artery: unspecified coronary artery Qualified Code(s): I21.3 - ST elevation (STEMI) myocardial infarction of unspecified site
[2018-09-03] MEDS: FOLIC ACID 1 MG TAB PO SCH (15:43)
[2018-09-03 16:04] LABS: Appearance Urine Clear (Clear); Bilirubin Urine Negative (Negative); Blood Urine Negative (Negative); Color Urine Yellow; Glucose Urine UA Negative (Negative); Ketones Urine 1+ (Negative); Leukocyte Esterase Urine Negative (Negative); Nitrite Urine Negative (Negative); Protein Urine Negative (Negative); Specific Gravity Urine > 1.045 (1.000-1.030); Urobilinogen Urine Negative (Negative); pH Urine 6.5 (4.5-7.5)
[2018-09-03] MEDS: ACETAMINOPHEN 325 MG TAB PO PRN (17:51)
[2018-09-03] MEDS: TICAGRELOR 90 MG TAB PO SCH (20:02)
[2018-09-03] MEDS: THIAMINE HCL 100 MG TAB PO SCH (20:02)
[2018-09-03 23:00] LABS: Lyme Ab IgM w/WB Rflx Negative (Negative)
[2018-09-03 23:01] LABS: Lyme Ab IgG w/WB Rflx Negative (Negative)
[2018-09-04] MEDS: ACETAMINOPHEN 325 MG TAB PO PRN (01:04)
[2018-09-04] MEDS ORDERED: MoRPHine SULFATE 2 MG/ML CARP IV PRN (02:27)
[2018-09-04 04:37] LABS: Eosinophils # (auto) 0.01 K/uL (0-0.5); Eosinophils % (auto) 0.1 %; Hematocrit (blood only) 41.3 % (42-52); Immature Granulocytes # (auto) 0.01 K/uL (0.00-0.02); Immature Granulocytes % (auto) 0.1 %; Lymphocytes # (auto) 0.54 K/uL (1.2-3.4); Lymphocytes % (auto) 6.3 %; Mean Corpuscular Hgb Conc 33.9 g/dL (32-36); Mean Corpuscular Volume 93.2 fL (80-100); Mean Platelet Volume 9.5 fL (7.4-10.4); Monocytes # (auto) 1.02 K/uL (0.11-0.59); Monocytes % (auto) 11.9 %; Neutrophils # (auto) 6.96 K/uL (1.4-6.5); Neutrophils % (auto) 81.6 %; Platelet Count 169 K/uL (130-400); RDW Coefficient of Variation 12.9 % (11.5-14.5); RDW Standard Deviation 44.2 fL (36.4-46.3); Red Blood Count 4.43 M/uL (4.7-6.1); White Blood Count 8.54 K/uL (4.8-10.8)
[2018-09-04 04:59] LABS: BUN Creatinine Ratio 20.5 (10-20); Calcium 8.2 mg/dl (8.5-10.1); Est GFR (Non-African American) 95.7; Potassium 3.9 mmol/L (3.5-5.1)
[2018-09-04 06:32] LABS: Estimated Average Glucose 111 mg/dl; Hemoglobin A1C 5.5 % (4.5-5.6)
--- NOTE | 2018-09-04 07:51 | Critical Care Progress Note ---
Date of Service September 04, 2018 Assessment & Plan (1) ST elevation (STEMI) myocardial infarction: Neuro- awake alert. pain control CV- HD stable s/p STEMI with LAD stent. cardiac arrest with rosc after defib x1 and amiodarone. aspirin, ticagrelor, atorvastatin. metoprolol, lisinopril. ec ho with EF 30-35 Pulmonary- sat well on RA ID- no signs infection Renal- cr ok GI- diet as tolerated Heme- SCD proph Endocrine- keep blood sugars <!80 Dispo- ok to transfer out of ICU (2) Cardiac arrest with ventricular fibrillation: Subjective chest pain improving no other complaints Physical Exam Physical Exam: Constitutional: Comfortable NAD HEENT: normocephalic atraumatic. MMM. CV: RRR nl s1,s2 no murmurs rubs or gallops Lungs: clear to auscultation bilaterally. no accessory muscle use Abd: soft nontender nondistended. normal bowel sounds Ext: no edema. no cyanosis, no clubbing Skin: warm dry Neuro: alert and oriented. moving all extremities Psych: normal mood and affect Results & Data Vital Signs (Past 12 Hours) Vital Signs Temp Pulse Resp BP Pulse Ox 09/04/18 06:00 57 L 17 90/56 L 96 09/04/18 05:00 55 L 0 L 94/56 L 94 09/04/18 04:00 55 L 24 114/69 93 09/04/18 03:00 56 L 20 113/73 94 09/04/18 02:00 61 22 103/54 L 95 09/04/18 01:00 62 21 88/45 L 94 09/04/18 00:00 58 L 20 120/71 96 09/03/18 23:00 58 L 21 123/73 96 09/03/18 22:06 63 12 121/72 94 09/03/18 22:00 61 21 121/72 93 09/03/18 21:00 63 22 120/78 95 09/03/18 20:00 36.8 C 68 18 131/84 94 Laboratory Results Laboratory Results - last 24 hr 09/03/18 09/03/18 09/03/18 07:24 07:24 08:30 WBC RBC Hgb Hct MCV MCH MCHC RDW Std Deviation RDW Coeff of Asaf Plt Count MPV Immature Gran % (Auto) Neut % (Auto) Lymph % (Auto) Carter % (Auto) Eos % (Auto) Baso % (Auto) Immature Gran # (Auto) Neut # (Auto) Lymph # (Auto) Carter # (Auto) Eos # (Auto) Baso # (Auto) Neutrophils % (Manual) 33.0 Lymphocytes % (Manual) 27.0 Reactive Lymphs % (Man) 26.1 Monocytes % (Manual) 10.4 Eosinophils % (Manual) 1.7 Basophils % (Manual) 0.9 Myelocytes % (Man) 0.9 Neutrophils # (Manual) 2.21 Total Absolute Neuts 2.21 Lymphocytes # (Manual) 1.81 Reactive Lymphs # 1.75 Total Abs Lymphocytes 3.56 H Monocytes # (Manual) 0.70 H Eosinophils # (Manual) 0.11 Basophils # (Manual) 0.06 Myelocytes # (Manual) 0.06 H RBC Morphology Unremarkable Activ Coag Time Kaolin 197 H Sodium 141 Potassium 4.7 Chloride 107 Carbon Dioxide 25 Anion Gap 9.0 BUN 15 Creatinine 1.10 Est Cr Clr Drug Dosing 83.6 Est GFR ( Amer) 82.9 Est GFR (Non-Af Amer) 71.6 BUN/Creatinine Ratio 13.5 Glucose 129 H POC Glucose Estimat Average Glucose Hemoglobin A1c Calcium 9.3 Magnesium 2.5 H Total Bilirubin 0.5 AST 43 H ALT 48 Alkaline Phosphatase 59 Total Creatine Kinase 82 CK-MB (CK-2) 2.3 CK/CKMB % Calc 2.8 Troponin I 0.193 H* Total Protein 7.2 Albumin 3.8 Globulin 3.4 Albumin/Globulin Ratio 1.1 Triglycerides Cholesterol LDL Cholesterol, Calc VLDL Cholesterol, Calc HDL Cholesterol Cholesterol/HDL Ratio Lipase 95 TSH 1.470 Specimen Hemolysis Urine Color Urine Appearance Urine pH Ur Specific Walnut Urine Protein Urine Glucose (UA) Urine Ketones Urine Blood Urine Nitrite Urine Bilirubin Urine Urobilinogen Ur Leukocyte Esterase Nasal Screen MRSA (PCR) Lyme Disease IgG Ab Lyme Disease IgM Ab Hepatitis C Ab Screen 09/03/18 09/03/18 09/03/18 08:53 10:15 11:15 WBC RBC Hgb Hct MCV MCH MCHC RDW Std Deviation RDW Coeff of Asaf Plt Count MPV Immature Gran % (Auto) Neut % (Auto) Lymph % (Auto) Carter % (Auto) Eos % (Auto) Baso % (Auto) Immature Gran # (Auto) Neut # (Auto) Lymph # (Auto) Carter # (Auto) Eos # (Auto) Baso # (Auto) Neutrophils % (Manual) Lymphocytes % (Manual) Reactive Lymphs % (Man) Monocytes % (Manual) Eosinophils % (Manual) Basophils % (Manual) Myelocytes % (Man) Neutrophils # (Manual) Total Absolute Neuts Lymphocytes # (Manual) Reactive Lymphs # Total Abs Lymphocytes Monocytes # (Manual) Eosinophils # (Manual) Basophils # (Manual) Myelocytes # (Manual) RBC Morphology Activ Coag Time Kaolin 263 H Sodium Potassium Chloride Carbon Dioxide Anion Gap BUN Creatinine Est Cr Clr Drug Dosing Est GFR ( Amer) Est GFR (Non-Af Amer) BUN/Creatinine Ratio Glucose POC Glucose 106 H Estimat Average Glucose Hemoglobin A1c Calcium Magnesium Total Bilirubin AST ALT Alkaline Phosphatase Total Creatine Kinase CK-MB (CK-2) CK/CKMB % Calc Troponin I Total Protein Albumin Globulin Albumin/Globulin Ratio Triglycerides Cholesterol LDL Cholesterol, Calc VLDL Cholesterol, Calc HDL Cholesterol Cholesterol/HDL Ratio Lipase TSH Specimen Hemolysis Urine Color Urine Appearance Urine pH Ur Specific Walnut Urine Protein Urine Glucose (UA) Urine Ketones Urine Blood Urine Nitrite Urine Bilirubin Urine Urobilinogen Ur Leukocyte Esterase Nasal Screen MRSA (PCR) Negative Lyme Disease IgG Ab Lyme Disease IgM Ab Hepatitis C Ab Screen 09/03/18 09/03/18 09/03/18 15:30 15:46 21:45 WBC RBC Hgb Hct MCV MCH MCHC RDW Std Deviation RDW Coeff of Saaf Plt Count MPV Immature Gran % (Auto) Neut % (Auto) Lymph % (Auto) Carter % (Auto) Eos % (Auto) Baso % (Auto) Immature Gran # (Auto) Neut # (Auto) Lymph # (Auto) Carter # (Auto) Eos # (Auto) Baso # (Auto) Neutrophils % (Manual) Lymphocytes % (Manual) Reactive Lymphs % (Man) Monocytes % (Manual) Eosinophils % (Manual) Basophils % (Manual) Myelocytes % (Man) Neutrophils # (Manual) Total Absolute Neuts Lymphocytes # (Manual) Reactive Lymphs # Total Abs Lymphocytes Monocytes # (Manual) Eosinophils # (Manual) Basophils # (Manual) Myelocytes # (Manual) RBC Morphology Activ Coag Time Kaolin Sodium Potassium Chloride Carbon Dioxide Anion Gap BUN Creatinine Est Cr Clr Drug Dosing Est GFR ( Amer) Est GFR (Non-Af Amer) BUN/Creatinine Ratio Glucose POC Glucose Estimat Average Glucose Hemoglobin A1c Calcium Magnesium Total Bilirubin AST ALT Alkaline Phosphatase Total Creatine Kinase CK-MB (CK-2) CK/CKMB % Calc Troponin I 89.300 H* 106.000 H* Total Protein Albumin Globulin Albumin/Globulin Ratio Triglycerides Cholesterol LDL Cholesterol, Calc VLDL Cholesterol, Calc HDL Cholesterol Cholesterol/HDL Ratio Lipase TSH Specimen Hemolysis Urine Color Yellow Urine Appearance Clear Urine pH 6.5 Ur Specific Walnut > 1.045 H Urine Protein Negative Urine Glucose (UA) Negative Urine Ketones 1+ H Urine Blood Negative Urine Nitrite Negative Urine Bilirubin Negative Urine Urobilinogen Negative Ur Leukocyte Esterase Negative Nasal Screen MRSA (PCR) Lyme Disease IgG Ab Lyme Disease IgM Ab Hepatitis C Ab Screen 09/03/18 09/03/18 09/04/18 21:48 21:48 04:09 WBC 8.54 RBC 4.43 L Hgb 14.0 Hct 41.3 L MCV 93.2 MCH 31.6 MCHC 33.9 RDW Std Deviation 44.2 RDW Coeff of Asaf 12.9 Plt Count 169 MPV 9.5 Immature Gran % (Auto) 0.1 Neut % (Auto) 81.6 Lymph % (Auto) 6.3 Carter % (Auto) 11.9 Eos % (Auto) 0.1 Baso % (Auto) 0.0 Immature Gran # (Auto) 0.01 Neut # (Auto) 6.96 H Lymph # (Auto) 0.54 L Carter # (Auto) 1.02 H Eos # (Auto) 0.01 Baso # (Auto) 0.00 Neutrophils % (Manual) Lymphocytes % (Manual) Reactive Lymphs % (Man) Monocytes % (Manual) Eosinophils % (Manual) Basophils % (Manual) Myelocytes % (Man) Neutrophils # (Manual) Total Absolute Neuts Lymphocytes # (Manual) Reactive Lymphs # Total Abs Lymphocytes Monocytes # (Manual) Eosinophils # (Manual) Basophils # (Manual) Myelocytes # (Manual) RBC Morphology Activ Coag Time Kaolin Sodium Potassium Chloride Carbon Dioxide Anion Gap BUN Creatinine Est Cr Clr Drug Dosing Est GFR ( Amer) Est GFR (Non-Af Amer) BUN/Creatinine Ratio Glucose POC Glucose Estimat Average Glucose Hemoglobin A1c Calcium Magnesium Total Bilirubin AST ALT Alkaline Phosphatase Total Creatine Kinase CK-MB (CK-2) CK/CKMB % Calc Troponin I Total Protein Albumin Globulin Albumin/Globulin Ratio Triglycerides Cholesterol LDL Cholesterol, Calc VLDL Cholesterol, Calc HDL Cholesterol Cholesterol/HDL Ratio Lipase TSH Specimen Hemolysis Urine Color Urine Appearance Urine pH Ur Specific Walnut Urine Protein Urine Glucose (UA) Urine Ketones Urine Blood Urine Nitrite Urine Bilirubin Urine Urobilinogen Ur Leukocyte Esterase Nasal Screen MRSA (PCR) Lyme Disease IgG Ab Negative Lyme Disease IgM Ab Negative Hepatitis C Ab Screen Pending 09/04/18 09/04/18 04:09 04:09 WBC RBC Hgb Hct MCV MCH MCHC RDW Std Deviation RDW Coeff of Asaf Plt Count MPV Immature Gran % (Auto) Neut % (Auto) Lymph % (Auto) Carter % (Auto) Eos % (Auto) Baso % (Auto) Immature Gran # (Auto) Neut # (Auto) Lymph # (Auto) Carter # (Auto) Eos # (Auto) Baso # (Auto) Neutrophils % (Manual) Lymphocytes % (Manual) Reactive Lymphs % (Man) Monocytes % (Manual) Eosinophils % (Manual) Basophils % (Manual) Myelocytes % (Man) Neutrophils # (Manual) Total Absolute Neuts Lymphocytes # (Manual) Reactive Lymphs # Total Abs Lymphocytes Monocytes # (Manual) Eosinophils # (Manual) Basophils # (Manual) Myelocytes # (Manual) RBC Morphology Activ Coag Time Kaolin Sodium 137 Potassium 3.9 D Chloride 103 Carbon Dioxide 25 Anion Gap 9.0 BUN 16 Creatinine 0.80 D Est Cr Clr Drug Dosing 116.0 Est GFR ( Amer) 111.0 Est GFR (Non-Af Amer) 95.7 BUN/Creatinine Ratio 20.5 H Glucose 113 H POC Glucose Estimat Average Glucose 111 Hemoglobin A1c 5.5 Calcium 8.2 L Magnesium Total Bilirubin AST ALT Alkaline Phosphatase Total Creatine Kinase CK-MB (CK-2) CK/CKMB % Calc Troponin I Total Protein Albumin Globulin Albumin/Globulin Ratio Triglycerides 84 Cholesterol 194 LDL Cholesterol, Calc 106 VLDL Cholesterol, Calc 17 HDL Cholesterol 71 Cholesterol/HDL Ratio 3 Lipase TSH Specimen Hemolysis Urine Color Urine Appearance Urine pH Ur Specific Walnut Urine Protein Urine Glucose (UA) Urine Ketones Urine Blood Urine Nitrite Urine Bilirubin Urine Urobilinogen Ur Leukocyte Esterase Nasal Screen MRSA (PCR) Lyme Disease IgG Ab Lyme Disease IgM Ab Hepatitis C Ab Screen (1) ST elevation (STEMI) myocardial infarction Involved coronary artery: unspecified coronary artery Qualified Code(s): I21.3 - ST elevation (STEMI) myocardial infarction of unspecified site
[2018-09-04] MEDS: THIAMINE HCL 100 MG TAB PO SCH ×2 (07:57→21:28)
[2018-09-04] MEDS: CEROVITE ADV FORMULA TAB PO SCH (07:57)
[2018-09-04] MEDS: LISINOPRIL 5 MG TAB PO SCH (07:57)
[2018-09-04] MEDS: TICAGRELOR 90 MG TAB PO SCH ×2 (07:57→21:27)
[2018-09-04] MEDS: ASPIRIN 81 MG ECTAB PO SCH (07:58)
[2018-09-04] MEDS: FOLIC ACID 1 MG TAB PO SCH (07:58)
[2018-09-04] MEDS: METOPROLOL TARTRATE 25 MG TAB PO SCH ×2 (07:58→21:27)
[2018-09-04] MEDS: ATORVASTATIN 40 MG TAB PO SCH (07:58)
--- NOTE | 2018-09-04 09:10 | Cardiology Progress Note ---
Date of Service September 04, 2018 Assessment & Plan (1) ST elevation (STEMI) myocardial infarction: 2. Ischemic cardiomyopathyEF 30 to 35% 3. Post cardiac arrest with CPR/defibrillation x1 4. Residual chest wall pain 5. Minimal non-culprit coronary artery disease 6. Alcohol abuse Patient hemodynamically and electrically stable. No recurrent anginal symptoms. No access site complications or post procedure complications. Visual symptoms resolved. Echo with severe LV dysfunction and LAD distribution akinesis. Mild hypokinesis in non-MD distributions, question secondary to stunning post arrest versus long- term alcohol use. Continue DAPT with aspirin, Brilinta Continue current MARIANNA, beta-blockertransition metoprolol to Toprol-XL on discharge Start low-dose spironolactone 12.5 mg today Continue high intensity statin Long discussion with patient regarding cardiomyopathy. Would be interested in LifeVest if indicated. Plan to repeat limited echocardiogram tomorrow to rule out apical thrombus and reassess LV function. If function unchanged with send home with LifeVest. Importance of reduced alcohol intake From a cardiac standpoint okay to transfer to telemetry today. Possible discharge tomorrow. Subjective Feeling well this morning. Residual chest discomfort with moving, inspiration improving from yesterday. Denies significant shortness of breath. Prior visual disturbance resolved Telemetry reviewedno significant ectopy Review of Systems Review of Systems: All systems reviewed & are unremarkable except as noted in HPI & below Physical Exam Physical Exam: General: Comfortable, no acute distress HEENT: Sclerae anicteric, mucous membranes moist Lungs: Clear to auscultation bilaterally, no rhonchi or wheezes Cardiac: Regular rate and rhythm, no murmurs. No JVD. Abdomen: Soft, nontender, nondistended, positive bowel sounds. Extremities: Warm, well perfused, no edema. Right radial artery access site with no ecchymosis, hematoma. Distal pulse and sensation intact. Skin: No rashes or lesions. Neuro: Nonfocal Psych: Alert orient x3, normal affect and mood Results & Data Vital Signs (Past 12 Hours) Vital Signs Temp Pulse Resp BP Pulse Ox 09/04/18 08:00 36.7 C 58 L 16 113/48 L 95 09/04/18 07:55 61 20 108/59 L 95 09/04/18 07:00 54 L 18 84/52 L 96 09/04/18 06:00 57 L 17 90/56 L 96 09/04/18 05:00 55 L 0 L 94/56 L 94 09/04/18 04:00 55 L 24 114/69 93 09/04/18 03:00 56 L 20 113/73 94 09/04/18 02:00 61 22 103/54 L 95 09/04/18 01:00 62 21 88/45 L 94 09/04/18 00:00 58 L 20 120/71 96 09/03/18 23:00 58 L 21 123/73 96 09/03/18 22:06 63 12 121/72 94 09/03/18 22:00 61 21 121/72 93 09/03/18 21:00 63 22 120/78 95 (1) ST elevation (STEMI) myocardial infarction Involved coronary artery: unspecified coronary artery Qualified Code(s): I21.3 - ST elevation (STEMI) myocardial infarction of unspecified site
--- NOTE | 2018-09-04 09:19 | Hospitalist Progress Note ---
Date of Service September 04, 2018 Assessment & Plan (1) ST elevation (STEMI) myocardial infarction: Anterior wall STEMI 2nd to 100% occluded LAD. s/p emergent heart cath by Dr Cuello with successful VALARIE to the LAD on 09/03/18 Cont asa, brilinta, Lipitor 80mg daily Lopressor 12.5mg BID, Lisinopril 5mg daily troponin peaked at 105 Counseled him on natural history of CAD and told him that prior tobacco use, genetics, etc all play a role in its development. transfer to PCU today, possible d/c home tomorrow (2) Cardiomyopathy: EF is 35%, this is a new finding d/w cardiology, could be due to ischemia, stunned myocardium from CA or possibly due to alcohol plan to repeat echo tomorrow to reassess EF and look for thrombus may need a life vest if EF not improved, he would be open to wearing this he knows that he needs to stop drinking alcohol (3) Cardiac arrest with ventricular fibrillation: V.fib arrest 2nd to 100% occluded LAD. s/p successful pentecostalism of spontaneous circulation with chest comp ressions/defibrillation per ACLS protocol. s/p emergent cath with VALARIE to LAD. (4) Hyperlipidemia: LDL only 106 and the HDL is 71, at goal continue Lipitor 80mg daily (5) Alcohol abuse: 5 shots bourbon daily. No prior h/o withdrawal. Thiamine/folic acid/MVI. Counseled to moderate his etoh intake to 1-2 each day but preferably much less. no signs of withdrawal (6) Visual disturbance: no further complaints (7) Arthralgia: diffuse pain, in the [place] a lot requests screen for Lyme disease, will check tomorrow (8) DVT prophylaxis: SCDs for now. updated at bedside. plan of care d/w Dr Cuello. Subjective patient feeling well today, has some chest pain from compressions no chest pressure appetite is back today, ate well at breakfast reviewed labs, CBC normal, BMP with normal renal function and electrolytes stable discussed with yesy Rogers with transfer to [facility] patient has cardiomyopathy with EF 35%, could be from stunned myocardium from CA, could be alcohol repeat echo tomorrow, may need to go home with life vest discussed with ICU staff Review of Systems Review of Systems: All systems reviewed & are unremarkable except as noted in HPI & below Constitutional: no fever, no chills, no sweats, no fatigue and no weakness Respiratory: no cough and no dyspnea Cardiovascular: + chest pain (more like rib pain from compressions); no dyspnea, no orthopnea and no edema Gastrointestinal: no abdominal pain, no nausea, no vomiting, no constipation and no diarrhea/loose stools Genitourinary: no dysuria Musculoskeletal: + joint pain (right shoulder) Physical Exam Constitutional: WD/WN, vitals as above Eyes: PERRL, conjunctivae normal, anicteric sclerae ENMT: external ear and nose normal, oropharynx normal Neck: trachea midline, no thyromegaly Respiratory: normal respiratory effort, lungs clear to auscultation Cardiovascular: RRR, no murmur, no edema Gastrointestinal (Abdomen): normal bowel sounds, soft, nontender, no hepatosplenomegaly Musculoskeletal: no cyanosis or clubbing, extremities motor strength 5/5 Skin: no rashes, warm and dry Neurologic: patellar DTR's 2+ bilat, sensation intact and PERRL, EOMI, accommodation nl, no face palsy, no dysarthria Psychiatric: A+Ox3, euthymic affect Lymphatic: no cervical or axillary lymphadenopathy Results & Data Vital Signs (Past 12 Hours) Vital Signs Temp Pulse Resp BP Pulse Ox 09/04/18 08:00 36.7 C 58 L 16 113/48 L 95 09/04/18 07:55 61 20 108/59 L 95 09/04/18 07:00 54 L 18 84/52 L 96 09/04/18 06:00 57 L 17 90/56 L 96 09/04/18 05:00 55 L 0 L 94/56 L 94 09/04/18 04:00 55 L 24 114/69 93 09/04/18 03:00 56 L 20 113/73 94 09/04/18 02:00 61 22 103/54 L 95 09/04/18 01:00 62 21 88/45 L 94 09/04/18 00:00 58 L 20 120/71 96 09/03/18 23:00 58 L 21 123/73 96 09/03/18 22:06 63 12 121/72 94 09/03/18 22:00 61 21 121/72 93 Laboratory Results Laboratory Results - last 24 hr 09/03/18 09/03/18 09/03/18 08:30 08:53 10:15 WBC RBC Hgb Hct MCV MCH MCHC RDW Std Deviation RDW Coeff of Asaf Plt Count MPV Immature Gran % (Auto) Neut % (Auto) Lymph % (Auto) [place] % (Auto) Eos % (Auto) Baso % (Auto) Immature Gran # (Auto) Neut # (Auto) Lymph # (Auto) [place] # (Auto) Eos # (Auto) Baso # (Auto) Activ Coag Time Kaolin 197 H 263 H Sodium Potassium Chloride Carbon Dioxide Anion Gap BUN Creatinine Est Cr Clr Drug Dosing Est GFR ( Amer) Est GFR (Non-Af Amer) BUN/Creatinine Ratio Glucose POC Glucose Estimat Average Glucose Hemoglobin A1c Calcium Troponin I Triglycerides Cholesterol LDL Cholesterol, Calc VLDL Cholesterol, Calc HDL Cholesterol Cholesterol/HDL Ratio Urine Color Urine Appearance Urine pH Ur Specific [place] Urine Protein Urine Glucose (UA) Urine Ketones Urine Blood Urine Nitrite Urine Bilirubin Urine Urobilinogen Ur Leukocyte Esterase Nasal Screen MRSA (PCR) Negative Lyme Disease IgG Ab Lyme Disease IgM Ab Hepatitis C Ab Screen 09/03/18 09/03/18 09/03/18 11:15 15:30 15:46 WBC RBC Hgb Hct MCV MCH MCHC RDW Std Deviation RDW Coeff of Asaf Plt Count MPV Immature Gran % (Auto) Neut % (Auto) Lymph % (Auto) [place] % (Auto) Eos % (Auto) Baso % (Auto) Immature Gran # (Auto) Neut # (Auto) Lymph # (Auto) [place] # (Auto) Eos # (Auto) Baso # (Auto) Activ Coag Time Kaolin Sodium Potassium Chloride Carbon Dioxide Anion Gap BUN Creatinine Est Cr Clr Drug Dosing Est GFR ( Amer) Est GFR (Non-Af Amer) BUN/Creatinine Ratio Glucose POC Glucose 106 H Estimat Average Glucose Hemoglobin A1c Calcium Troponin I 89.300 H* Triglycerides Cholesterol LDL Cholesterol, Calc VLDL Cholesterol, Calc HDL Cholesterol Cholesterol/HDL Ratio Urine Color Yellow Urine Appearance Clear Urine pH 6.5 Ur Specific [place] > 1.045 H Urine Protein Negative Urine Glucose (UA) Negative Urine Ketones 1+ H Urine Blood Negative Urine Nitrite Negative Urine Bilirubin Negative Urine Urobilinogen Negative Ur Leukocyte Esterase Negative Nasal Screen MRSA (PCR) Lyme Disease IgG Ab Lyme Disease IgM Ab Hepatitis C Ab Screen 09/03/18 09/03/18 09/03/18 21:45 21:48 21:48 WBC RBC Hgb Hct MCV MCH MCHC RDW Std Deviation RDW Coeff of Asaf Plt Count MPV Immature Gran % (Auto) Neut % (Auto) Lymph % (Auto) [place] % (Auto) Eos % (Auto) Baso % (Auto) Immature Gran # (Auto) Neut # (Auto) Lymph # (Auto) [place] # (Auto) Eos # (Auto) Baso # (Auto) Activ Coag Time Kaolin Sodium Potassium Chloride Carbon Dioxide Anion Gap BUN Creatinine Est Cr Clr Drug Dosing Est GFR ( Amer) Est GFR (Non-Af Amer) BUN/Creatinine Ratio Glucose POC Glucose Estimat Average Glucose Hemoglobin A1c Calcium Troponin I 106.000 H* Triglycerides Cholesterol LDL Cholesterol, Calc VLDL Cholesterol, Calc HDL Cholesterol Cholesterol/HDL Ratio Urine Color Urine Appearance Urine pH Ur Specific [place] Urine Protein Urine Glucose (UA) Urine Ketones Urine Blood Urine Nitrite Urine Bilirubin Urine Urobilinogen Ur Leukocyte Esterase Nasal Screen MRSA (PCR) Lyme Disease IgG Ab Negative Lyme Disease IgM Ab Negative Hepatitis C Ab Screen Neg 09/04/18 09/04/18 09/04/18 04:09 04:09 04:09 WBC 8.54 RBC 4.43 L Hgb 14.0 Hct 41.3 L MCV 93.2 MCH 31.6 MCHC 33.9 RDW Std Deviation 44.2 RDW Coeff of Asaf 12.9 Plt Count 169 MPV 9.5 Immature Gran % (Auto) 0.1 Neut % (Auto) 81.6 Lymph % (Auto) 6.3 [place] % (Auto) 11.9 Eos % (Auto) 0.1 Baso % (Auto) 0.0 Immature Gran # (Auto) 0.01 Neut # (Auto) 6.96 H Lymph # (Auto) 0.54 L [place] # (Auto) 1.02 H Eos # (Auto) 0.01 Baso # (Auto) 0.00 Activ Coag Time Kaolin Sodium 137 Potassium 3.9 D Chloride 103 Carbon Dioxide 25 Anion Gap 9.0 BUN 16 Creatinine 0.80 D Est Cr Clr Drug Dosing 116.0 Est GFR ( Amer) 111.0 Est GFR (Non-Af Amer) 95.7 BUN/Creatinine Ratio 20.5 H Glucose 113 H POC Glucose Estimat Average Glucose 111 Hemoglobin A1c 5.5 Calcium 8.2 L Troponin I Triglycerides 84 Cholesterol 194 LDL Cholesterol, Calc 106 VLDL Cholesterol, Calc 17 HDL Cholesterol 71 Cholesterol/HDL Ratio 3 Urine Color Urine Appearance Urine pH Ur Specific [place] Urine Protein Urine Glucose (UA) Urine Ketones Urine Blood Urine Nitrite Urine Bilirubin Urine Urobilinogen Ur Leukocyte Esterase Nasal Screen MRSA (PCR) Lyme Disease IgG Ab Lyme Disease IgM Ab Hepatitis C Ab Screen Medications Administered Current Inpatient Medications Acetaminophen (Tylenol) 650 mg PO Q4H PRN PRN Reason: Mild Pain (scale 1-3) Stop: 10/03/18 09:36 Last Admin: 09/04/18 01:04 Dose: 650 mg Documented by: Aspirin (Ecotrin Ectab) 81 mg PO [facility] Stop: 10/04/18 08:59 Last Admin: 09/04/18 07:58 Dose: 81 mg Documented by: Atorvastatin Calcium (Lipitor) 80 mg PO [facility] Stop: 10/03/18 11:59 Last Admin: 09/04/18 07:58 Dose: 80 mg Documented by: Folic Acid (Folvite) 1 mg PO [facility] Stop: 10/03/18 14:29 Last Admin: 09/04/18 07:58 Dose: 1 mg Documented by: [facility]) [facility] [place] Stop: 10/03/18 11:59 Last Admin: 09/04/18 07:57 Dose: 5 mg Documented by: Metoprolol Tartrate (Lopressor) 12.5 mg PO BID [facility] Stop: 10/03/18 11:59 Last Admin: 09/04/18 07:58 Dose: 12.5 mg Documented by: Miscellaneous ([facility] Protocol For Hyperglycemia) 1 ea N/A PRN PRN; Protocol PRN Reason: Hyperglycemia Protocol Stop: 09/05/18 09:42 Morphine Sulfate (Morphine Sulfate) 1 mg IV Q2H PRN PRN Reason: Pain Stop: 09/18/18 02:26 Multivitamins/Minerals (Multivitamin W/ Minerals Tab) 1 tab PO [facility] Stop: 10/04/18 08:59 Last Admin: 09/04/18 07:57 Dose: 1 tab Documented by: Ondansetron HCl (Zofran) 4 mg IV Q6H PRN PRN Reason: Nausea And Vomiting Stop: 10/03/18 09:36 Spironolactone (Aldactone) 12.5 mg PO DAILY [facility] Stop: 10/04/18 09:14 Thiamine HCl (Vitamin B-1) 200 mg PO BID [facility] Stop: 10/03/18 20:59 Last Admin: 09/04/18 07:57 Dose: 200 mg Documented by: Ticagrelor (Brilinta) 90 mg PO BID [facility] Stop: 10/03/18 20:59 Last Admin: 09/04/18 07:57 Dose: 90 mg Documented by: PG Care Time/CCT Total # of Minutes Spent Total Time Spent with Patient: Total time spent is greater than 50% in coordination of care (as documented) at patient's floor/unit and/or counseling patient: (1) ST elevation (STEMI) myocardial infarction Involved coronary artery: unspecified coronary artery Qualified Code(s): I21.3 - ST elevation (STEMI) myocardial infarction of unspecified site (2) Hyperlipidemia Hyperlipidemia type: mixed hyperlipidemia Qualified Code(s): E78.2 - Mixed hyperlipidemia
[2018-09-04] MEDS: SPIRONOLACTONE 25 MG TAB PO SCH (10:01)
[2018-09-05] MEDS: ACETAMINOPHEN 325 MG TAB PO PRN (02:27)
[2018-09-05] MEDS: SPIRONOLACTONE 25 MG TAB PO SCH (07:19)
[2018-09-05] MEDS: TICAGRELOR 90 MG TAB PO SCH (07:19)
[2018-09-05] MEDS: ASPIRIN 81 MG ECTAB PO SCH (07:19)
[2018-09-05] MEDS: ATORVASTATIN 40 MG TAB PO SCH (07:19)
[2018-09-05] MEDS: FOLIC ACID 1 MG TAB PO SCH (07:19)
[2018-09-05] MEDS: METOPROLOL TARTRATE 25 MG TAB PO SCH (07:20)
[2018-09-05] MEDS: LISINOPRIL 5 MG TAB PO SCH (07:20)
[2018-09-05] MEDS: CEROVITE ADV FORMULA TAB PO SCH (07:20)
[2018-09-05] MEDS: THIAMINE HCL 100 MG TAB PO SCH (07:21)
[2018-09-05 07:53] LABS: BUN Creatinine Ratio 21.1 (10-20); Calcium 8.7 mg/dl (8.5-10.1); Creatinine Clr Calc Pharmacy 116.8 ml/min; Est GFR (African American) 115.9; Potassium 3.8 mmol/L (3.5-5.1)
[2018-09-05 08:10] LABS: Lyme Ab IgG w/WB Rflx Negative (Negative); Lyme Ab IgM w/WB Rflx Negative (Negative)
--- NOTE | 2018-09-05 10:34 | Cardiology Progress Note ---
Date of Service September 05, 2018 Assessment & Plan (1) ST elevation (STEMI) myocardial infarction: 2. Ischemic cardiomyopathyEF ~35% 3. Post cardiac arrest with CPR/defibrillation x1 4. Residual chest wall pain 5. Minimal non-culprit coronary artery disease 6. Alcohol abuse Patient hemodynamically and electrically stable and chest pain-free. Reviewed repeat echocardiogram obtained this morning which showed persistent LAD distribution hypokinesis to akinesis with EF around 35%. No evidence of LV thrombus. Remain hopeful for some degree of LV function recovery long-term but in the short-term feel potential benefit from LifeVest. Otherwise from a cardiac standpoint okay for discharge today. Home on DAPT with aspirin, Brilinta Transition metoprolol to Toprol-XL 25 mg daily Continue lisinopril 5 mill grams daily Increase spironolactone to 25 mg daily Continue atorvastatin 80 mg daily Follow-up with cardiology in 2 weeks. Discuss cardiac rehab at that time. Repeat echocardiogram in 1 month Subjective Patient feeling well today. Chest wall pain improved with Tylenol overnight. No other new concerns today. Telemetry reviewedbrief episodes of junctional bradycardia in the 50s. No other significant arrhythmia. Echo from this morning reviewedEF still around 35%, no apical thrombus. Review of Systems Review of Systems: All systems reviewed & are unremarkable except as noted in HPI & below Physical Exam Physical Exam: General: Comfortable, no acute distress HEENT: Sclerae anicteric, mucous membranes moist Lungs: Clear to auscultation bilaterally, no rhonchi or wheezes Cardiac: Regular rate and rhythm, no murmurs. No JVD. Abdomen: Soft, nontender, nondistended, positive bowel sounds. Extremities: Warm, well perfused, no edema. Right radial artery access site with no ecchymosis, hematoma. Distal pulse and sensation intact. Skin: No rashes or lesions. Neuro: Nonfocal Psych: Alert orient x3, normal affect and mood Results & Data Vital Signs (Past 12 Hours) Vital Signs Temp Pulse Resp BP Pulse Ox 09/05/18 06:30 36.5 C 59 L 18 119/75 98 09/05/18 02:25 36.8 C 67 18 115/75 97 09/04/18 22:55 36.9 C 61 18 113/71 95 (1) ST elevation (STEMI) myocardial infarction Involved coronary artery: unspecified coronary artery Qualified Code(s): I21.3 - ST elevation (STEMI) myocardial infarction of unspecified site
--- NOTE | 2018-09-05 14:53 | Discharge Summary ---
Date of Service September 05, 2018 Admission HPI Per Admitting Provider 63yo male with history of remote tobacco dependence (quit age 40yo) and hyperlipidemia who presented to the [facility] ER this morning after experiencing b/l upper chest discomfort. This was associated with extreme diaphoresis and nausea. He had mild radiation of pain to his upper back. No left arm pain. Minimal radiation to the right lower jaw region. He was preparing to go on a mountain bike ride this AM when the symptoms occurred. Because of the severity of the symptoms he presented to [facility]. Apparently while in triage he became unresponsive. He was brought into the resuscitation bay and his initial rhythm was v.fib. He was promptly given 100% O2 via BVM, chest compressions were started, and he was defibrillated with 200J x 1 with conversion of v.fib to sinus tachycardia. He never required intubation. By report he received about 2 minutes of chest compressions. He was given a bolus of 300mg of IV amiodarone about this time. Initial EKG following successful defibrillation showed STEMI with ST segment elevation in I/AVL and anterolateral leads. Code heart alert was called, and Dr Pablo Cuello took him emergently to the car barn laborer where a proximal LAD lesion of 100% was found. He underwent successful VALARIE to the LAD. Other major vessels were either normal or had minimal disease. I saw the patient in the ICU post-cath. He was complaining of chest discomfort but it was a different pain that what he had this AM (it was sternal in location rather than high up in the chest/shoulders). He had worsening chest discomfort with taking deep breaths. He also noted that after coming out of the car barn laborer he was seeing a "diagonal line" in his left eye. This has been coming & going since the heart cath. He denies any right eye visual disturbance. Denies focal weakness in either arm or leg. He had a similar episode of chest pain about 1 week ago while riding his mountain bike. His symptoms self-resolved after that incident. 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 Admits to heavy alcohol use daily - 5 shots of bourbon every day. Denies h/o withdrawal symptoms. Admission Exam Per Admitting Provider Constitutional: well developed, well nourished and average body habitus; no acute distress and no altered mental status Eyes: PERRL visual bailon full by direct confrontation ENMT: external ear and nose normal, oropharynx normal Neck: trachea midline, no thyromegaly Respiratory: normal respiratory effort, lungs clear to auscultation Cardiovascular: Rate/Rhythm: regular rate and regular rhythm Heart Sounds: normal S1 and normal S2; no murmur Vessels: posterior tibial pulses present and dorsalis pedis pulses present; no JVD Extremities: no edema Chest (Breasts): Additional Comments: mildly tender to palpation over sternal region Gastrointestinal (Abdomen): normal bowel sounds, soft, nontender, no hepatosplenomegaly Musculoskeletal: no cyanosis or clubbing, extremities motor strength 5/5 scars present over both knees Skin: no rashes, warm and dry Neurologic: PERRL, EOMI, accommodation nl, no face palsy, no dysarthria deep tendon reflexes 2+ bilaterally; no focal motor deficits Psychiatric: A+Ox3, euthymic affect Lymphatic: no cervical lymphadenopathy Principal Diagnosis STEMI Discharge Exam Constitutional WD/WN, vitals as above Eyes PERRL, conjunctivae normal, anicteric sclerae ENMT external ear and nose normal, oropharynx normal Neck trachea midline, no thyromegaly Respiratory normal respiratory effort, lungs clear to auscultation Cardiovascular RRR, no murmur, no edema Gastrointestinal (Abdomen) normal bowel sounds, soft, nontender, no hepatosplenomegaly Musculoskeletal no cyanosis or clubbing, extremities motor strength 5/5 Skin no rashes, warm and dry Neurologic patellar DTR's 2+ bilat, sensation intact and PERRL, EOMI, accommodation nl, no face palsy, no dysarthria Psychiatric A+Ox3, euthymic affect Lymphatic no cervical or axillary lymphadenopathy Discharge Data Allergies Allergy/AdvReac Type Severity Reaction Status Date / Time Penicillins Allergy Unknown . Verified 09/03/18 07:53 Consultations 09/03/18 09:44 Consult Cardiac Rehabilitation Routine Consult Case Management - Discharge Planning Routine 09/03/18 09:45 Consult Flattening Press Operator Routine Procedures Performed Operation Date: 09/03/18 07:45 Actual Procedures s Cineradiography w/Routine Exam - Dinh Cuello MD p Aspiration/PCI w/VALARIE for Stemi - Dinh Cuello MD s Cath, Left with Cors and Vent - Dinh Cuello MD Ordered Studies 09/03/18 07:44 CL Cath Imgs for PACS use only Stat Hospital Course (1) ST elevation (STEMI) myocardial infarction: Anterior wall STEMI 2nd to 100% occluded LAD. s/p emergent heart cath by Dr Cuello with successful VALARIE to the LAD on 09/03/18 Continue DAPT for one year, aspirin and Brilinta 90mg BID Lipitor 80mg daily Lopressor 12.5mg BID, Lisinopril 5mg daily stable for discharge today follow up with Dr. Cuello (2) Cardiomyopathy: EF is 35%, this is a new finding d/w cardiology, could be due to ischemia, stunned myocardium from KS or possibly due to alcohol repeat echo on 09/05 with 35-40% EF, akinetic apex, no signs of LV thrombus treat with metoprolol, lisinopril and spironolactone will arrange for life vest he knows that he needs to stop drinking alcohol (3) Cardiac arrest with ventricular fibrillation: V.fib arrest 2nd to 100% occluded LAD. s/p successful faith of spontaneous circulation with chest co mpressions/defibrillation per ACLS protocol. s/p emergent cath with VALARIE to LAD. set up for life vest on discharge follow up with Dr. Cuello (4) Hyperlipidemia: LDL only 106 and the HDL is 71, at goal continue Lipitor 80mg daily (5) Alcohol abuse: 5 shots bourbon daily. No prior h/o withdrawal. Thiamine/folic acid/MVI. Counseled to moderate his etoh intake to 1-2 each day but preferably much less. no signs of withdrawal plans to stop drinking (6) Visual disturbance: no further complaints (7) Arthralgia: diffuse pain, in the rivera a lot Lyme screen negative (8) DVT prophylaxis: SCDs for now. Total Time Total Time Spent Total Time Spent (In Minutes): 35 minutes Total Time Includes: Examination of the Patient, Discharge Planning, Medication Reconciliation, Communication With Other Providers (Dr. Cuello) and Other (updated patient's at the bedside) Discharge Plan Discharge Items Patient Disposition: Home - Self-Care Reason For Visit: STEMI Discharge Diagnosis: STEMI (heart attack) Ventricular fibrillation cardiac arrest Cardiomyopathy Condition: Good Discharge Goals: Improve disease control and Improve function Activity: Per 'Additional Instructions' section Lifting: None Bathing: No limitations Sexual Activity: Wait until after follow-up appointment Exercise/Sports: Wait until after follow-up appointment Driving/Machine Use: Resume 3 days after discharge Non-emergency contact: Primary Care Provider and Reel Tender Call non-emergency contact if: you have any medication questions, your symptoms worsen, your pain is not controlled and you have a fever Follow-up/Referrals: Dinh Cuello MD [Physician] - 09/15/18 11:30 am (Please, follow up at [facility]'s Cardiology Office with Dr. Sal Cuello on TuesdaySeptember 15 at 11:30 am (arrive 11:10 am). *The office is located in [address] of [facility] [employer] [facility]. This is the big building located next to this [facility]. If you have any questions, call the office at [phone].) Hans Linton MD [Physician] - Diet: Heart Healthy Addtl Provider Instructions: Medications: - ASPIRIN: 81mg daily, keeps stent open - BRILINTA: 90mg twice a day, taken with aspirin this works to keep stent open, take for the next year - ATORVASTATIN: cholesterol medication that stabilizes plaques, clinically proven to prevent future heart attacks - METOPROLOL: 12.5mg twice a day, controls heart rate as well as blood pressure - LISINOPRIL: low dose, intended to treat cardiomyopathy, prevent remodeling - SPIRONOLACTONE: low dose diuretic to help control volume, helps treat cardiomyopathy - NITRO: use only as needed, sublingual, for chest pain or pressure Ventricular fibrillation cardiac arrest, STEMI treated successfully with drug eluting stent to the LAD aspirin and Brilinta will help keep stent open return to hospital immediately if you have crushing chest pressure or pain that was similar to prior symptoms, KS use atorvastatin 80mg daily, this stabilizes plaques will send you home with life vest to treat any further ventricular fibrillation Cardiomyopathy: ejection fraction low at 35% will treat with metoprolol, lisinopril, spironolactone these medications are proven to help improve heart function follow up with cardiology in a few weeks, plan for repeat echo at their discretion to see if heart function improving FOLLOW UP - Dr. Linton in one week, call for appt - Dr. Cuello, cardiology, in 2-3 weeks, call for appt, Prescriptions: New atorvastatin 40 mg Tablet 80 mg PO QAM 30 Days Qty: 60 RF: 3 Brilinta 90 mg Tablet 90 mg PO BID 30 Days Qty: 60 RF: 3 lisinopril 5 mg tablet 5 mg PO DAILY 30 Days Qty: 30 RF: 3 metoprolol tartrate 25 mg Tablet 12.5 mg PO BID 30 Days Qty: 30 RF: 3 aspirin [Ecotrin Low Strength] 81 mg Tablet,Delayed Release (Dr/Ec) 81 mg PO QAM 30 Days Qty: 30 RF: 0 spironolactone 25 mg Tablet 12.5 mg PO DAILY 30 Days Qty: 15 RF: 3 nitroglycerin 0.4 mg tablet, sublingual 0.4 mg sublingual Q5M PRN (Reason: chest pain) Qty: 30 RF: 1 Continued Glucosamine Chondroitin 550-30-1 mg Capsule 2 cap PO QAM RF: 0 Stand-Alone Forms: Call Back Authorization, [facility], Work/School Release (Inpt) Discharge Orders: Discharge Order (Routine); Ordered 09/05/18 Ordered By: Juan F Mathur Admission Data Admit Date/Time: 09/03/18 09:44 Attending Provider: Juan F Mathur Admit Provider: Dinh Cuello Primary Care Provider: PCP,NO Other Providers: Kike Rosenberg Service: Telemetry
[2018-09-06] MEDS ORDERED: SPIRONOLACTONE 25 MG TAB PO SCH (09:00)
[2018-09-06] MEDS ORDERED: METOPROLOL SUCC 25MG EXT REL TAB PO SCH (09:00)
== END 2018-09-05 16:46 | disposition home or self-care (01) | DRG 246 ==
LOC: ED 07:07 → CC 08:15 → SUATTDRO 09:44 → 1E 09:44 → 2S 09-04 10:49

== ENCOUNTER 2024-03-06 06:33 | Observation (INO) ==
--- NOTE | 2024-02-02 13:35 | PAT Medication Instructions ---
Medication Instructions Date of Service February 02, 2024 Home Medications Medication Instructions Recorded nitroglycerin 0.4 mg sublingual 0.4 mg sublingual Q5M PRN chest 05/02/19 tablet pain #25 tabs atorvastatin 80 mg tablet 80 mg PO HS #90 tabs 05/23/23 losartan 25 mg tablet 12.5 mg (1/2 x 25 mg) PO QAM #45 05/23/23 tabs walker #1 ea 01/06/24 glucosamine sulf dipot chlr,msm,chond 550 mg-C 30 mg-howard 1 mg capsule (Glucosamine Chondroitin) 2 - 3 cap PO QAM nitroglycerin 0.4 mg sublingual tablet 0.4 mg sublingual Q5M PRN atorvastatin 80 mg tablet 80 mg PO HS losartan 25 mg tablet 12.5 mg (1/2 x 25 mg) PO QAM clopidogrel 75 mg tablet 75 mg PO QAM Continue as directed nitroglycerin 0.4 mg sublingual tablet 0.4 mg sublingual Q5M PRN(if needed) ASK your prescriber and surgeon clopidogrel 75 mg tablet 75 mg PO QAM(in order for spinal or epidural anesthesia, clopidogrel (Plavix) needs to be stopped 7 days before surgery. Please check if okay with doctor that prescribes this to you) STOP taking 2 weeks before surgery (or as soon as possible if surgery is within 2 weeks) glucosamine sulf dipot chlr,msm,chond 550 mg-C 30 mg-howard 1 mg capsule (Glucosamine Chondroitin) 2 - 3 cap PO QAM DO NOT take the morning of surgery losartan 25 mg tablet 12.5 mg (1/2 x 25 mg) PO QAM Take evening before surgery atorvastatin 80 mg tablet 80 mg PO HS Other Notes NOTHING TO EAT OR DRINK AFTER MIDNIGHT. If you have any questions please call us at [phone] or [phone] or [phone] or [phone]
--- NOTE | 2024-02-08 08:37 | Anesthesiology Consultation ---
Date of Service February 08, 2024 Assessment & Plan (1) Encounter for pre-operative examination: - Infectious disease screening: Per assessment on 02/08/24- No known recent infectious disease contacts or current infectious disease symptoms. - Outpatient joint assessment: Pt currently scheduled for inpatient pathway. If surgeon requests review for outpatient joint pathway, patient is not recommended candidate for outpatient joint program from anesthesia standpoint based on available information. - Cardiology visit (12/01/23): "CAD (coronary artery disease).. acute proximal LAD occlusion 08/2018 post PCI with single VALARIE. Residual occluded first diagonal.. Resolved severe LV dysfunction--EF 35% post VA -- 55% 09/2018.. Prior heavy alcohol use.. Sinus/ectopic atrial bradycardia.. Continues to do well from a cardiac standpoint. He remains very active without new exertional chest symptoms. On exam today no signs of heart failure, new papular heart disease or new PVD. Blood pressure near goal. Most recent LDL excellent. Long-term no change to current ASCVD secondary prevention meds. If new symptoms in the future would consider ambulatory monitoring with his sinus bradycardia. Follow- up in 1 year.. Patient planning to undergo left TKA with Dr. Pappas 02/2024. No active cardiac conditions with excellent functional capacity. He is low risk for planned surgery and is okay to proceed without additional cardiac testing.. Okay to hold clopidogrel for 5 days prior to procedure.. When clopidogrel held replace with aspirin 81 mg daily during perioperative course. Discontinue when clopidogrel restarted postsurgery." > Patient states he was advised by cardiology okay to hold Plavix as directed by surgeon/anesthesia. Patient made aware that for neuraxial anesthesia, Plavix needs to be held 7 days prior to surgery- Patient voiced understanding. - Workload note sent to PCP regarding adrenal adenoma- Awaiting response. Patient otherwise acceptable risk for surgery. Chart Review Chart Review: Patient seen in Pre Admission Testing Teaching & Discussion Pre-Anesthesia Teaching/Discussion Notes: Instructed NPO after midnight before surgery,except medications with 15 cc of water. Medication instructions provided according to the PAT guidelines. History Surgery Operation Date: 03/06/24 07:00 Proposed Procedures p Left Total Knee Arthroplasty - Austin Pappas MD Height/Weight Height: 6 ft Weight: 97.6 kg Allergies Allergy/AdvReac Type Severity Reaction Status Date / Time lisinopril Allergy Unknown angioedema Verified 02/02/24 11:26 Penicillins Allergy Unknown . Verified 02/02/24 11:26 spironolactone AdvReac Intermediate Rash Verified 02/02/24 11:26 Medications Home Medications Medication Instructions Recorded Confirmed Last Taken glucosamine sulf dipot 2 - 3 cap PO QAM 09/03/18 02/02/24 11/25/19 chlr,msm,chond 550 mg-C 30 mg-howard 1 mg capsule (Glucosamine Chondroitin) nitroglycerin 0.4 mg sublingual 0.4 mg sublingual Q5M PRN chest 05/02/19 02/02/24 Unknown tablet pain #25 tabs atorvastatin 80 mg tablet 80 mg PO HS #90 tabs 05/23/23 02/02/24 Unknown losartan 25 mg tablet 12.5 mg (1/2 x 25 mg) PO QAM #45 05/23/23 02/02/24 Unknown tabs walker #1 ea 01/06/24 Unknown clopidogrel 75 mg tablet 75 mg PO QAM 02/02/24 02/02/24 Unknown Past Medical History Medical History (Updated 02/08/24 @ 08:43 by Екатерина Mi) Adrenal adenoma Abdomen CT 04/2020: 2.5 cm right adrenal gland lesion demonstrating imaging characteristics compatible with a benign adrenal adenoma [facility] PCP visit 04/2023: "with random cortisol level completed April 2020- ... currently asymptomatic.. follow-up imaging ordered 2023" Bradycardia Chronic per patient CAD (coronary artery disease) Stent x1 (2018) Cardiac arrest with ventricular fibrillation (08/2018) Cardiomyopathy History of ST elevation myocardial infarction (STEMI) (08/2018) Stent x1 Hx of basal cell carcinoma Hyperlipidemia Per records Lumbar back pain with radiculopathy affecting left lower extremity Osteoarthritis of left knee Sensorineural hearing loss (SNHL) of both ears Per records Mild to moderate HF SNHL AU Wears hearing aid in both ears Per records Phonak Audeo L70R disp 11/2022 Exercise / Class Metabolic Activity II 4-5 Yardwork/Stairs/Walk up hill (one FS: No CP, no SOB) Past Family History Family History Mother , in her 70s Sepsis Father , age 58 Laryngeal cancer Alcoholism Uncle Myocardial infarction Grandfather (Maternal) Stroke Grandfather (Paternal) Stroke Other Cancer Past Surgical History Surgical History (Updated 02/07/24 @ 10:02 by Екатерина Mi) H/O arthroscopy of knee Left History of anesthesia reaction Slow to wake, bradycardia History of basal cell carcinoma (BCC) excision History of open reduction and internal fixation (ORIF) procedure Right elbow, 2 pins History of repair of ACL Left Hx of cardiac catheterization (09/03/18) Stent x1 Hx of tooth extraction Past Anesthesia History No Family Hx of Anesthesia Complications and Other (Slow to wake, bradycardia) History of PONV No Hx of PONV and No Hx of Motion Sickness Social History Smoking Status: Former smoker tobacco type: cigarettes Do You Dip or Chew Tobacco: No Smoking End Date: Quit 1999 Hx Alcohol Use: Yes Alcohol type: wine alcohol intake frequency: 0-2 drinks per day (2 wine per night) Hx Substance Use: No substance use type: does not use Review of Systems Patient denies chest pain, shortness of breath, dyspnea on exertion, fever, chills, cough, wheezing, palpitations. Physical Exam Vital Signs BP 135/72 P 49 TEMP 97.9 SP02 97%RA RESP 16 Physical Full cervical extension range of motion. Full TMJ range of motion. TMD 3 finger breaths Mallampati Score III Dentition: missing molar, root canal repair, + cap Lungs: clear throughout to auscultation Cardiac: regular rate and rhythm, no murmurs noted Spine: normal Carotid arteries: negative bruit Extremities: no LE edema Lab Results Anesthesia Preop Results Results Anesthesia Widget: WBC 3.21 K/ul (4.8-10.8) L 02/08/24 Hgb 13.7 g/dl (14.0-18.0) L 02/08/24 Hct 41.8 % (42.0-52.0) L 02/08/24 Plt 167 K/uL (130-400) 02/08/24 Na 139 mmol/L (136-145) 02/08/24 K 4.5 mmol/L (3.5-5.1) 02/08/24 Cl 105 mmol/L (98-107) 02/08/24 CO2 29 mmol/L (21-32) 02/08/24 BUN 22 mg/dl (6-23) 02/08/24 Creat 0.85 mg/dl (0.6-1.4) 02/08/24 Glucose Level 98 mg/dl (70-99(Fasting)) 02/08/24 PT 10.7 Seconds (9.0-12.0) 02/08/24 PTT 26 Seconds (21-31) 02/08/24 INR 1.0 (0.9-1.1) 02/08/24 Blood Type A Negative 02/08/24 Antibody Screen NEGATIVE 02/08/24 Testing Electrocardiogram Date: 02/08/24 SB at 45bpm. Old septal infarct (cited on or before 09/03/2018). Chest X-Ray Date: 02/08/24 FINDINGS: No lines and tubes are seen. Cardiomegaly is noted. The lungs are clear. No evidence of pleural effusion or pneumothorax. IMPRESSION: No acute chest disease. Echocardiogram Date: 10/26/18 LVEF 55-60%. Mild apical hypokinesis. Mild concentric LVH. No significant valvular disease. Cardiac Catheterization Date: 09/03/18 Summary: 1. Precath lab cardiac arrest 2. Anterior STEMI/Occluded proximal LAD 3. Minimal non-culprit coronary artery disease 4. Mildly elevated intracardiac filling pressure 5. Successful PCI of proximal LAD with single drug-eluting stent (3.0 x 22 mm Sproul; postdilated with 3.5 and 4 oh NC balloons). moderate caliber 1st diagonal occluded at completion of procedure Recommendations: Admit to ICU for continued monitoring. Loaded with Ticagrelor 180mg. Continue dual-antiplatelet therapy for at least 1 year. Trend troponins until peak, Check Echo. Uptitrate beta-nadine/MARIANNA as BP allows. High-dose statin. Consult cardiac Rehab.
--- NOTE | 2024-03-03 18:01 | History & Physical Report ---
Date of Service March 03, 2024 Assessment & Plan (1) Osteoarthritis of left knee: 68-year-old gentleman with multiple medical comorbidities including coronary to heart disease on status post stent placement and on Plavix with advanced left knee DJD with history of ACL reconstruction in the past. He is failed conservative measures and would like to have his left knee replaced. Plan: Temo to take him to the operating room for left total knee replacement. Will remove any hardware needed to to do the surgery. Risks and benefits this procedure explained. He understands. He is seeing the director of sales support and they have okayed him to stop his Plavix 7 days preop. Will start at 1 day postop. Will use teds and SCDs along with the Plavix for DVT prophylaxis. He is planned to be discharged to home with [facility] program. Will probably put a bottle Vicryl in the cement. (2) CAD (coronary artery disease): (3) Hyperlipidemia: (4) Adrenal adenoma: (5) Bradycardia: History of Present Illness Chief Complaint: . Persistent left knee pain and discomfort. Primary Care Provider: Tanvi Moulton MD . The patient is a 68-year-old gentleman who now presents for surgical treatment of his left knee. He is got a long history of left knee problems and had his knee initially scoped and then subsequently a cadaver ACL reconstruction by Dr. Bae with Achilles tendon allograft. Over the years he developed increased pain discomfort in his left knee. Has been bad days but having more more bad days as time goes on. He has trouble walking any distance due to pain. He now like to proceed with a left knee replacement. Allergies Allergy/AdvReac Type Severity Reaction Status Date / Time lisinopril Allergy Unknown angioedema Verified 02/02/24 11:26 Penicillins Allergy Unknown . Verified 02/02/24 11:26 spironolactone AdvReac Intermediate Rash Verified 02/02/24 11:26 Home Medications Medication Instructions Recorded Confirmed Type glucosamine sulf dipot 2 - 3 cap PO QAM 09/03/18 02/02/24 History chlr,msm,chond 550 mg-C 30 mg-howard 1 mg capsule (Glucosamine Chondroitin) nitroglycerin 0.4 mg sublingual 0.4 mg sublingual Q5M PRN chest 05/02/19 02/02/24 Rx tablet pain #25 tabs atorvastatin 80 mg tablet 80 mg PO HS #90 tabs 05/23/23 02/02/24 Rx losartan 25 mg tablet 12.5 mg (1/2 x 25 mg) PO QAM #45 05/23/23 02/02/24 Rx tabs walker #1 ea 01/06/24 Rx clopidogrel 75 mg tablet 75 mg PO QAM 02/02/24 02/02/24 History acetaminophen 500 mg tablet 1,000 mg (2 x 500 mg) PO TID pain 03/02/24 Rx (Tylenol Extra Strength) 30 days #180 tabs cefadroxil 500 mg capsule 500 mg PO BID 7 days #14 caps 03/02/24 Rx ondansetron 4 mg disintegrating 4 mg PO Q8 PRN nausea #20 tabs 03/02/24 Rx tablet oxycodone 5 mg tablet 5 - 10 mg (1 - 2 x 5 mg) PO Q6 PRN 03/02/24 Rx pain #40 tabs sennosides 8.6 mg tablet (Senokot) 8.6 mg PO BID prevent constipation 03/02/24 Rx 14 days #28 tabs tamsulosin 0.4 mg capsule (Flomax) 0.4 mg PO DAILY #7 caps 03/02/24 Rx Past Med/Surg History Problem List CAD (coronary artery disease) Stent x1 (2018) Cardiomyopathy Hyperlipidemia Per records Adrenal adenoma Abdomen CT 04/2020: 2.5 cm right adrenal gland lesion demonstrating imaging characteristics compatible with a benign adrenal adenoma [facility] PCP visit 04/2023: "with random cortisol level completed April 2020- ... currently asymptomatic.. follow-up imaging ordered 2023" Osteoarthritis of left knee Sensorineural hearing loss (SNHL) of both ears Per records Mild to moderate HF SNHL AU Wears hearing aid in both ears Per records Phonak Sandraeo [id number] disp 11/[address] elevation myocardial infarction (STEMI) (08/2018) Stent x1 Bradycardia Chronic per patient Hx of basal cell carcinoma Lumbar back pain with radiculopathy affecting left lower extremity Encounter for pre-operative examination Medical History Cardiac arrest with ventricular fibrillation (08/2018) Surgical History History of basal cell carcinoma (BCC) excision History of anesthesia reaction Slow to wake, bradycardia Hx of tooth extraction Hx of cardiac catheterization (09/03/18) Stent x1 History of open reduction and internal fixation (ORIF) procedure Right elbow, 2 pins H/O arthroscopy of knee Left History of repair of ACL Left Family History Mother , in her 70s Sepsis Father , age 58 Laryngeal cancer Alcoholism Uncle Myocardial infarction Grandfather (Maternal) Stroke Grandfather (Paternal) Stroke Other Cancer Social History Smoking Status: Former smoker Tobacco Type: Cigarettes Age Started Using Tobacco: 23; Age Quit Using Tobacco: 40; packs per day: 1; Smoking End Date: Quit 1999; Second Hand Exposure: No; Do You Dip or Chew Tobacco: No; Tobacco Cessation Education Requested by Patient: No Hx Alcohol Use: Yes Alcohol type: wine Alcohol Intake Frequency: 2-3 x/Week Hx Substance Use: No Preferred Language: Indonesian Communication Ability: Effective Junior Brand Manager Required: No Beliefs That Will Affect Care: None marital status: marital status details: 1 step-daughter Current Living Situation: Spouse Current Living Situation Comment: lives in [place] current occupational status: employed current occupation: [employer]itting [employer] Other Information That Helps Us Care for You: No Feels Safe at Home: Yes Safety Concerns: Feels Safe At This Time Physical Activity Frequency: 3-4 Times per Week Seatbelt Use: always Assistive Devices: Glasses and Hearing Aid - Bilateral Assistive Devices Comment: readers Review of Systems All systems reviewed & are unremarkable except as noted in HPI & below. Physical Exam . Physical examination reveals a pleasant middle-age male. He looks to be in pretty good health. Examination of left knee reveal patient ambulates independently. Got varus alignment to his knee with a little bit of a varus thrust. He is got some large incisions around his knee 1 anterior medially and one on the side. He is got bony hypertrophy medially. His range of motion about 5 degrees short of full extension about 120 degrees of flexion. He does have laxity Jake testing but no Gola clinical instability with pivot shift testing. No varus or valgus instability. He is got full painless hip motion. He is neurovascularly intact Constitutional WD/WN, vitals as above Neck trachea midline, no thyromegaly Respiratory normal respiratory effort, lungs clear to auscultation Cardiovascular RRR, no murmur, no edema Gastrointestinal (Abdomen) normal bowel sounds, soft, nontender, no hepatosplenomegaly Results & Data Results & Data Laboratory Results . Diagnostic Findings . 4 views of the left knee were reviewed. She has advanced left knee medial compartment DJD. He is got interference screw in the femur and a MedSurg post on the tibia. He is got anterior subluxation of the tibia relative to the femur. He got complete loss of the medial joint space. PG Care Time/CCT Total # of Minutes Spent Total Time Spent with Patient: Total time spent is greater than 50% in coordination of care (as documented) at patient's floor/unit and/or counseling patient: Coding Level of Care Code None Diagnoses Osteoarthritis of left knee M17.12 CAD (coronary artery disease) I25.10 Mixed hyperlipidemia E78.2 Hyperlipidemia type: mixed hyperlipidemia Adrenal adenoma D35.00 Bradycardia R00.1 (3) Hyperlipidemia Hyperlipidemia type: mixed hyperlipidemia Qualified Code(s): E78.2 - Mixed hyperlipidemia
[~2024-03-06 06:33] MED LIST: ALLERGY Noted to ORDERED Medication SCH
[2024-03-06] MEDS ORDERED: ROPIVACAINE 0.5% 5 MG/ML 30 ML VIAL ONE (06:36)
[2024-03-06] MEDS ORDERED: BUPIVACAINE 0.5 % 5 MG/1 ML PF 10ML VIAL ONE (06:36)
--- NOTE | 2024-03-06 06:47 | History & Physical Bridge Note ---
Date of Service March 06, 2024 History & Physical Bridge Note I have examined the patient, reviewed the History & Physical and in the interval since the performance of the History & Physical I have noted the following changes of clinical significance: no changes noted
[2024-03-06] MEDS: LR 500ML BOLUS, THEN 15ML/HR IV SCH (06:57)
[2024-03-06] MEDS: ACETAMINOPHEN 500 MG TAB PO SCH ×2 (07:25→14:06)
[2024-03-06] MEDS: METOCLOPRAMIDE HCL 10 MG TABLET PO SCH (07:25)
[2024-03-06] MEDS: CeleBREX 200 MG CAP PO SCH (07:25)
[2024-03-06] MEDS: FAMOTIDINE 20 MG TAB PO SCH (07:25)
[2024-03-06] MEDS: dexAMETHasone**PF** 10 MG/ML VIAL IV SCH (07:26)
[2024-03-06] MEDS: LR 60ML/HR IV SCH (07:26)
[2024-03-06] MEDS: Scopolamine 1 MG TDSY TD SCH (07:32)
[2024-03-06] MEDS ORDERED: PROPOFOL IV EMULSION 10 MG/ML 100 ML VIAL IV ONE (07:36)
[2024-03-06] MEDS ORDERED: fentaNYL citrate PF 100 MCG/2 ML VIAL ONE (07:37)
[2024-03-06] MEDS ORDERED: MIDAZOLAM HCL 1 MG/ML 2ML VIAL ONE (07:37)
[2024-03-06] MEDS ORDERED: ONDANSETRON INJ 2 MG/ML 2 ML VIAL IV PRN ×2 (08:05→12:20)
[2024-03-06] MEDS ORDERED: ATROPINE SULFATE 0.1 MG/ML 10ML SYR IV PRN (08:05)
[2024-03-06] MEDS ORDERED: ePHEDrine sulfate 50 MG/ML AMP IV PRN (08:05)
[2024-03-06] MEDS ORDERED: fentaNYL citrate PF 100 MCG/2 ML VIAL IV PRN (08:05)
[2024-03-06] MEDS: ceFAZolin 2000MG 2,000 MG/15 ML SYR IV SCH ×2 (08:54→17:07)
[2024-03-06] MEDS: ORTHO JOINT ANESTHETIC ONE (09:03)
[2024-03-06] MEDS: ROPIV 0.5% 246mg, Ketorolac 30mg, EPINEPHrine 0.5mg in NSS INFIL SCH (09:34)
[2024-03-06] MEDS: VANCOMYCIN HCL 1000MG/20ML VIAL ONE (09:35)
[2024-03-06] MEDS: TRANEXAMIC ACID 1,000 MG **IV Intra-op IV SCH (09:37)
[2024-03-06] MEDS ORDERED: ePHEDrine sulfate 50 MG/5 ML SYR ONE (09:54)
--- NOTE | 2024-03-06 10:43 | Operative Report ---
PG Post Operative Report Pre & Post Diagnosis Operation Date: 03/06/24 08:50 Pre-Op Diagnosis: Left Knee Degenerative Joint Disease Post-Op Diagnosis: Left Knee Degenerative Joint Disease I identified the patient and participated in the time-out.: Yes Procedure Operation Date: 03/06/24 08:50 Actual Procedures p Left Total Knee Arthroplasty(Left) - Austin Pappas MD Surgeon Austin Pappas MD Contact And Service Clerks Supervisor Haris Sebastian PA-C Estimated Blood Loss 50 Findings Consistent with Post-Op Diagnosis Specimens Left knee sent for pathology. Anesthesia Type Spinal MAC Complications none Disposition Accompanied Patient To Recovery: No Indications The patient is a 68-year-old gentleman whose had a long history of left knee problems. He had an open surgery to his left knee about 50 years ago. He then subsequently underwent an ACL reconstruction with allograft done by Dr. Bae about 25 years ago. Over the past 10 to 15 years she developed increased pain discomfort swelling in his knee. He is failed conservative measures. X-rays show advanced left knee arthritis. He elected proceed with surgical treatment. Description of Procedure Operative implants consist of: 1 Biomet Vanguard size 72.5 left posterior stabilized femoral component. 2. Biomet size 79 tibial tray. 3. 10 mm posterior stabilized polyethylene insert. 4. 34 x 8 and half all poly patella. The patient was taken the operating, identified, and placed on the operating table in the supine position. All contact areas were appropriately padded. IV antibiotics arrived by anesthesia team. Spinal anesthetic and adductor canal block had been provided in the holding area. The left side turn was then placed to the left lower extremity was then prepped and draped in usual sterile fashion. The left leg was elevated and exsanguinated with use of an Esmarch and the tourniquet was placed at 300 mmHg. An anterior approach left knee was then performed to longitudinal incision centered over the patella. Sharp dissection was carried through subcutaneous tissue down the extensor mechanism. A medial parapatellar arthrotomy incision was made. Some subperiosteal dissection was carried out medially. The fat pad was dissected beneath patella tendon. The lateral patellofemoral ligament was released. Patella subluxate laterally knee was flexed. The osteophytes taken off distal femur. The ACL and PCL were then released from the distal femur. His ACL was essentially absent. The tibia was then subluxated anteriorly. The external treatment LYMErix was then placed on the anterior face the tibia and adjusted 14 mm medially. The proximal tibial cut was made to remove about a millimeter bone at most from the most efficient aspect of the posterior medial tibial plateau. Some osteophytes taken off medially. The tibia sized to a size 79. Attention was then drawn to the femur. The distal femur was entered with a sharp drill. Intramedullary canal was suction. A 6 degree valgus cutting guide was placed. We did not run into the interference screw. The distal femoral cutting block was pinned in place and the distal femoral cut was made take an additional 3 mm of bone off distal femur. The femur was then sized to a size 72.5. The AP cutting block was pinned parallel to the epicondylar axis which was 4 degrees of external rotation. The anterior cut, anterior chamfer, posterior cut, posterior chamfer cuts were made. The box cutting guide was placed in the just slight lateral box cut was made. The knee was flexed. The remnants of the medial and lateral menisci were excised. The osteophytes taken off the posterior aspect the femur. A trial femoral component was placed. The tibial tray was pinned Nirali external rotation and the drill and stem punch were used to create defect in pr oximal tibia for the tibial tray. The knee was then trialed and the 10 mm insert fit most appropriately. Attention drawn the patella. The patella was cleaned of all soft tissues. Patella thickness measured 26 mm in thickness was cut down to 15. Was sized to a size 34 patella. The lug holes were drilled for 34 patella. The lateral osteophytes removed. Patella button was placed. Knee was taken through range of motion and the patella tracked nicely with no thumbs test. Attention was then drawn toward placement permanent components. All trial components were removed. Bone plug was placed into this femur limit blood loss. A double batch of Palacos G cement was mixed. I did add an additional gram of vancomycin due to his history of multiple open surgeries on this knee. A Biomet size 72.5 left posterior stabilized femoral component, size 79 tibial tray, 10 mm posterior Byce polyethylene insert, and a 34 x 8 and half all poly patella then cemented in place. The knee was brought out into full extension till cement hardened. Final cement check was then performed. Pericapsular tissues were injected with a total of 100 cc of Ortho mix. The patient did receive 1 g tranexamic acid. The tourniquet was then let down for final turn time 58 minutes. Hemostasis assured use electrocautery. Extensor Meclomen closed with combination 1 PDS suture #1 Vicryl suture in a figure-of- eight fashion. Extensor Meclomen checked found to be intact with subcutaneous tissues then closed with 2 Dexon suture in a buried interrupted fashion skin was closed skin aziza. Leg was then cleaned and dried and sterile dressing with Xeroform, 4 fours, sterile cast padding, Fredy bandage were applied. Patient then transferred to the recovery room in stable condition. Patient tolerated the pro cedure well and there were no complications. Haris Sebastian, my physician neurology physician assistant, was present for the entire procedure. His assistance was essential and required for appropriate patient positioning, prepping and draping, surgical exposure, performing the technical details of the operation, placement the implants, closure of the wound, and placement of the sterile bandage. I attest to the content of the Intraoperative Record and any orders documented therein. Any exceptions are noted below.
--- NOTE | 2024-03-06 11:01 | XRay Report ---
XR knee LT 1 or 2V routine CLINICAL HISTORY: Surgical Post Op COMPARISON: 04/30/2023 FINDINGS: Interval left knee prosthesis shows no hardware complication. Stable prior hardware from A CL repair. There is expected soft tissue gas. Skin aziza are present. IMPRESSION: Unremarkable postoperative exam. ACT 112: Negative or not required by law. Electronically signed by: Christophe Matos M.D. 03/06/2024 11:00 AM
[2024-03-06] MEDS ORDERED: NALOXONE HCL 0.4 MG/1 ML VIAL/CARP IV PRN (12:20)
[2024-03-06] MEDS ORDERED: METOCLOPRAMIDE HCL INJ 5 MG/ML 2 ML VIAL IV PRN (12:20)
[2024-03-06] MEDS ORDERED: ALUMINUM/MAGNESIUM SUSP 30 ML UDC PO PRN (12:20)
[2024-03-06] MEDS ORDERED: NITROGLYCERIN SL 0.4 MG/TAB TAB SL PRN (12:20)
[2024-03-06] MEDS ORDERED: diphenhydrAMINE Capsule 25 MG CAP PO PRN (12:20)
[2024-03-06] MEDS ORDERED: oxyCODONE HCL IR 5 MG TAB (IMMEDIATE RELEASE) PO PRN (12:20)
[2024-03-06] MEDS ORDERED: HYDROmorphone INJ 0.5 MG/0.5 ML SYR IV PRN (12:20)
[2024-03-06] MEDS ORDERED: MAGNESIUM HYDROXIDE SUSP 30 ML UDC PO PRN (12:20)
[2024-03-06] MEDS ORDERED: bisacodyL 10 MG SUPP PR PRN (12:20)
[2024-03-06] MEDS: KETOROLAC TROMETHAMINE 15 MG/ML VIAL IV SCH (12:36)
--- NOTE | 2024-03-06 13:13 | Anesthesiology Progress Note ---
Date of Service March 06, 2024 Anesthesia Post Procedure Vital Signs Vital Signs: Temp Pulse Pulse Resp BP Pulse Ox O2 Del Method 03/06/24 12:45 97.5 F L 50 L 16 118/69 97 Room Air 03/06/24 12:42 97.5 F L 52 L 17 125/63 98 Room Air 03/06/24 12:15 97.5 F L 54 L 17 119/64 97 Room Air 03/06/24 12:00 53 L 16 124/57 L 98 Room Air 03/06/24 11:50 97.5 F L 52 L 16 122/57 L 97 Room Air 03/06/24 11:40 46 L 12 110/49 L 96 Room Air 03/06/24 11:30 52 L 16 114/52 L 94 Room Air 03/06/24 11:20 48 L 14 109/50 L 98 Room Air 03/06/24 11:10 54 L 16 107/41 L 96 Room Air 03/06/24 11:00 52 L 14 125/46 L 97 Room Air 03/06/24 10:50 58 L 20 110/62 98 Room Air 03/06/24 10:40 84 16 112/50 L 96 Room Air 03/06/24 10:32 97.5 F L 88 14 102/50 L 98 Oxymask 03/06/24 07:05 98.1 F 46 L 18 153/72 H 95 Room Air O2 Flow Rate 03/06/24 12:45 03/06/24 12:42 03/06/24 12:15 03/06/24 12:00 03/06/24 11:50 03/06/24 11:40 03/06/24 11:30 03/06/24 11:20 03/06/24 11:10 03/06/24 11:00 03/06/24 10:50 03/06/24 10:40 03/06/24 10:32 6 03/06/24 07:05 Transfer of Care Handoff Completed per policy Notes Mental Status: alert / awake / arousable and participated in evaluation Patient Amnestic to Procedure: Yes Nausea / Vomiting: adequately controlled Pain: adequately controlled Airway Patency, RR, SpO2: stable & adequate BP & HR: stable & adequate Hydration State: stable & adequate Neuraxial Anesthesia: was administered and sensory block is resolving Anesthetic Complications: no major complications apparent and Pt Satisfied with anesthetic care
[2024-03-06] MEDS: Scopolamine CHECK PATCH PLACEMENT SCH (15:50)
[2024-03-06] MEDS: TRANEXAMIC ACID / 0.7% NACL 1,000 MG/100 ML BAG IV SCH (16:50)
[2024-03-06] MEDS: ASCORBIC ACID 500 MG TAB PO SCH (16:56)
[2024-03-06] MEDS: DOCUSATE SODIUM 100 MG CAP PO SCH (20:51)
[2024-03-06] MEDS: SENNA 8.6 MG TAB PO SCH (20:52)
[2024-03-06] MEDS: ATORVASTATIN 40 MG TAB PO SCH (20:53)
[2024-03-06] MEDS ORDERED: SENNA 8.6 MG TAB PO SCH (21:00)
[2024-03-07 03:17] VITALS: O2SAT 95
[2024-03-07 07:33] LABS: Hematocrit (blood only) 35.8 % (42.0-52.0); Mean Corpuscular Hemoglobin 31.3 pg (25.0-34.0); Mean Corpuscular Hgb Conc 33.5 g/dL (32.0-36.0); Mean Corpuscular Volume 93.2 fL (80.0-100.0); Mean Platelet Volume 9.8 fL (9.4-12.4); Platelet Count 154 K/uL (130-400); RDW Coefficient of Variation 12.6 % (11.5-14.5); RDW Standard Deviation 42.7 fL (36.4-46.3); Red Blood Count 3.84 M/uL (4.70-6.10); White Blood Count 10.25 K/ul (4.8-10.8)
[2024-03-07 07:49] LABS: BUN Creatinine Ratio 23.3 (10-20); Calcium 8.5 mg/dl (8.6-10.3); Creatinine Clr Calc Pharmacy 100.5 ml/min; Potassium 4.6 mmol/L (3.5-5.1)
[2024-03-07] MEDS: CLOPIDOGREL BISULFATE 75 MG TAB PO SCH (08:06)
[2024-03-07] MEDS: MULTIVITAMIN TAB PO SCH (08:06)
[2024-03-07] MEDS: ASPIRIN 81 MG ECTAB PO SCH (08:08)
[2024-03-07] MEDS: LOSARTAN POTASSIUM 25 MG TAB PO SCH (08:08)
[2024-03-07] MEDS: TAMSULOSIN HCL 0.4 MG CAP PO SCH (08:08)
[2024-03-07] MEDS: dexAMETHasone 10 MG in SYRINGE 0 ML IV SCH (08:11)
[2024-03-07 08:24] VITALS: PULSE 44; RESP 21; TEMP 97.9
[2024-03-07 08:37] VITALS: BP 154/72
--- NOTE | 2024-03-07 11:41 | Orthopedic Progress Note ---
Date of Service March 07, 2024 Assessment & Plan (1) Status post left knee replacement: Plan: 68-year-old gentleman postop day 1 from left knee replacement doing pretty well. Pains controlled. He is neurologically intact. Plan: 1. DVT prophylaxis including thigh-high teds, SCDs, back on his Plavix today, 24 hours postop. 2. PT/OT. Weight-bear as tolerated left total knee protocol 3. Pain. Doing okay with current pain regimen. 4. Disposition. Plan to discharge to home with some home health later today if he does okay in therapy. (2) CAD (coronary artery disease): (3) Hyperlipidemia: Admission and Anticipated Discharge Date Admission Date: March 06, 2024 Subjective 68-year-old gentleman postop day 1 from a left knee replacement patient doing pretty well. Pains been controlled. Reasonable night. No chest pain or shortness of breath. Not feeling dizzy or lightheaded. Physical Exam Physical Exam: Physical examination is a pleasant middle-age male. He is sitting up in his bedside talking with therapist looks pretty comfortable. Examination left leg reveals the dressing be clean dry and intact he can dorsiflex and plantarflex his foot appropriately. He can do a good straight leg raise. Respiratory: normal respiratory effort, lungs clear to auscultation Cardiovascular: RRR, no murmur, no edema Gastrointestinal (Abdomen): normal bowel sounds, soft, nontender, no hepatosplenomegaly Results & Data Vital Signs (Past 12 Hours) Vital Signs Temp Pulse Pulse Resp BP Pulse Ox O2 Del Method 03/07/24 08:01 49 L 154/72 H 03/07/24 08:00 36.6 C 44 L 21 120/60 95 Room Air 03/07/24 03:16 36.9 C 48 L 14 110/61 95 Room Air Laboratory Results Hemoglobin is 12.0. Hematocrit 35.8. Electrolytes are stable. (3) Hyperlipidemia Hyperlipidemia type: mixed hyperlipidemia Qualified Code(s): E78.2 - Mixed hyperlipidemia
--- NOTE | 2024-03-08 16:17 | Discharge Summary ---
Date of Service March 08, 2024 Admission HPI (Per Admitting) . The patient is a 68-year-old gentleman who now presents for surgical treatment of his left knee. He is got a long history of left knee problems and had his knee initially scoped and then subsequently a cadaver ACL reconstruction by Dr. Bae with Achilles tendon allograft. Over the years he developed increased pain discomfort in his left knee. Has been bad days but having more more bad days as time goes on. He has trouble walking any distance due to pain. He now like to proceed with a left knee replacement. Admission Exam (Per Admitting) . Physical examination reveals a pleasant middle-age male. He looks to be in pretty good health. Examination of left knee reveal patient ambulates independently. Got varus alignment to his knee with a little bit of a varus thrust. He is got some large incisions around his knee 1 anterior medially and one on the side. He is got bony hypertrophy medially. His range of motion about 5 degrees short of full extension about 120 degrees of flexion. He does have laxity Jake testing but no Gola clinical instability with pivot shift testing. No varus or valgus instability. He is got full painless hip motion. He is neurovascularly intact Principal Diagnosis Same as "Discharge Diagnosis" noted below under Discharge Instructions. Discharge Data Procedures Performed Operation Date: 03/06/24 08:50 Actual Procedures p Left Total Knee Arthroplasty(Left) - Austin Pappas MD Ordered Studies 03/06/24 05:00 US - OR guided needle placemen Routine Hospital Course (1) Status post left knee replacement: This is a 68 year old patient admitted on 03/06/23 and underwent total knee arthroplasty. He tolerated the procedure well and there were no complications. Transferred to the PACU post op and later to the orthopedic floor for further care. He was given ancef for antibiotic prophylaxis. He was also given CHYNA stockings, SCDs, and plavix for DVT prophylaxis. Hemoglobin, hematocrit, and vital signs were monitored during his hospital stay and remained stable. Did not require any blood transfusions. There were no complications during his hospital stay. By post op day #1 the patient was tolerating a regular diet, pain was reasonably controlled with oral pain medicine, and he was participating in physical therapy. On post op day #1 the patient was discharged home and set up with home health care. He was given printed discharge instructions including prescriptions for extra strength tylenol, cefadroxil, zofran, oxycodone, senokot, and flomax. Continue physical therapy, weight bearing as tolerated. Continue CHYNA stockings. Follow up approximately 2 weeks post op or sooner if there are problems or concerns. Discharge Plan Discharge Items Patient Disposition: Home - Home Health Services Reason For Visit: Left Knee Degenerative Joint Disease Discharge Diagnosis: Left Knee Replacement Activity: Per Instructions section Weightbearing: Full weightbearing Non-emergency contact: Surgeon Call non-emergency contact if: you have any medication questions Follow-up/Referrals: Tanvi Moulton MD [Primary Care Provider] - Diet: Regular Addtl Attending Provider Instructions: ACTIVITY RECOMMENDATIONS: Diet: * You may resume previous diet. Physical Therapy: * You will go to physical therapy three times each week for four to six weeks after your surgery in order to regain your knee range of motion and to retrain your knee to work properly. * It is just as important to make sure you are getting your knee perfectly straight as it is to regain your knee bend. * Taking a pain pill an hour before therapy can help you have a more productive and comfortable therapy session. Home Exercise: * You were shown a series of exercises (heel props, heel slides, etc.) in the hospital. Do these exercises three to four times each day including the exercises you were shown in physical therapy. Walking: * Get up and walk several times each day. For the first four weeks, try not to stand or walk for more than one hour at a time. If you do stand or walk for more than one hour, you will not hurt anything, but your knee and leg will likely swell. * As you feel comfortable, you may change from the walker or crutches to a cane and then to independent walking. MEDICATIONS: New Medicine: * You will likely be taking one or more of these medications: 1. Oxycodone - A quick and shorter-acting pain medication. Take one to two tablets every six hours to lessen your pain. 2. Plavix - Thins your blood to lessen the chance of forming a blood clot. * The most common side effects of pain medicine and iron are nausea and constipation. If nausea or constipation is too much of a problem or if you have any questions about your new medicines or doses, call [facility] at . We will try to help you manage these issues. "VERY IMPORTANT TO READ AND REVIEW" Pain: * The immediate post-operative period after knee replacement surgery is often quite painful. * You are given a prescription for pain medicine. You should take it, as directed, when you need it, especially before physical therapy and before going to bed. Pain that interferes with sleep is very common and can last several months. * You will likely need pain medicine for the first four to six weeks. It will not stop all of the pain. The pain will lessen and as you feel better, you may change to milder pain medicine such as Tylenol. * The most common side effects of pain medicine are nausea and constipation, so don't take more than you need. SPECIAL CARE INSTRUCTIONS: TEDs/Elastic Stockings: * The white elastic stockings help limit swelling and prevent blood clots from forming in your legs. The more you wear them, the more they work. * Wear them for six weeks after knee replacement surgery and four weeks after partial knee replacement. Incision Site Care: * Remove dressing postoperative day 2 and then shower. Keep direct shower pressure off the incision site. * After showering, cover aziza with dry gauze and change daily or more frequently if the dressing is getting saturated with drainage. * Use the CHYNA stockings to hold dressing in place. DO NOT apply tape on the skin. * May completely stop using bandage if wound is dry and no drainage * Aziza are removed between 2 and 3 weeks post-op. If your follow-up appointment is made before 2 weeks, please have your appointment re- scheduled. It is too early to remove the aziza. Prevention of Infection: * Take antibiotics one hour before any dental cleaning, dental work, urological procedure, gastrointestinal procedure or any invasive surgery in order to prevent your new joint from getting infected. * You may get the antibiotics from the doctor performing the procedure or you may call our office at [phone] before and we will call in a prescription to the pharmacy of your choice. Things to Watch For: * Drainage from the incision site that occurs more than one week after your surgery. * Severely increased knee/leg pain or swelling. * Increased redness at the incision site. * Fever above 102 degrees Fahrenheit. * Unusual chest pain or shortness of breath. * Unusual pain or burning with urination. Call [facility] at [phone] with any of the above problems or if you have any questions about your medicines or recovery. FOLLOW UP VISIT: Make an appointment to see your doctor for approximately two weeks after surgery for a progress check and staple removal by calling the office at [phone]. Pending Studies at Discharge: No Stand-Alone Forms: My [facility], Smoking Cessation Medications and DC Order Prescriptions: Continued nitroglycerin 0.4 mg tablet, sublingual 0.4 mg sublingual Q5M PRN (Reason: chest pain) Qty: 25 1RF (DME) paty [facility] See Rx Instructions .MEDSUPPLY Qty: 1 0RF Rx Instructions: As directed oxycodone 5 mg tablet 5 - 10 mg PO Q6 PRN (Reason: pain) Qty: 40 0RF Rx Instructions: Take as needed for pain ondansetron 4 mg tablet,disintegrating 4 mg PO Q8 PRN (Reason: nausea) Qty: 20 1RF Rx Instructions: Take as needed for nausea sennosides [Senokot] 8.6 mg tablet 8.6 mg PO BID 14 Days Qty: 28 0RF Rx Instructions: Take two times a day to prevent/treat constipation acetaminophen [Tylenol Extra Strength] 500 mg tablet 1,000 mg PO TID 30 Days Qty: 180 0RF Rx Instructions: Take 3 times per day to lessen pain tamsulosin [Flomax] 0.4 mg capsule 0.4 mg PO DAILY Qty: 7 0RF Rx Instructions: Begin night BEFORE surgery to prevent urinary retention cefadroxil 500 mg capsule 500 mg PO BID 7 Days Qty: 14 0RF Rx Instructions: Take 1 cap twice a day to prevent infection atorvastatin 80 mg tablet 80 mg PO HS Qty: 90 3RF losartan 25 mg tablet 12.5 mg PO QAM Qty: 45 3RF Glucosamine Chondroitin 550-30-1 mg Capsule 2 - 3 cap PO QAM clopidogrel 75 mg tablet 75 mg PO QAM aspirin 81 mg Tablet 81 mg PO DAILY Krames/Other Patient Handouts: Knee Replace Home Recovery Admission Data Admit Date/Time: 03/06/24 10:37 Attending Provider: Austin Pappas Admit Provider: Mian,Austin S. Primary Care Provider: Tanvi Moulton V. Other Providers: [facility],Home [facility] Other Interventions: Discharge Summary Assessment (RN) Last Done: 03/07/24 11:04
== END 2024-03-07 11:56 | disposition home health service (06) ==
LOC: ASU 06:33 → 3E 06:33